=== PATIENT | female | born 1945 | race Caucasian/White ===

== ENCOUNTER 2019-10-16 13:53 | Inpatient (IN) | payer OTHER ==
[~2019-10-16] VITALS: Ht 157.5 cm; Wt 89.4 kg
--- NOTE | ~2019-10-16 | HC ---
[facility] [place] [address] CONSULTATION Name: RAJANITAL K Room #: 412-P [facility] IN M.R.#: [id number] Admission: 10/16/19 Attend Phys: Pamela Santoyo Discharge: Date of : 41 Report #: [id number] THIS REPORT FOR: //name// CC: Arnel Santoyo DATE OF SERVICE: 10/17/2019 REASON FOR CONSULTATION: Possible tonsillar abscess. HISTORY OF PRESENT ILLNESS: The patient is a 74-year-old female, who was in her usual state of good health until this past Tuesday. She noted on Tuesday the onset of odynophagia along with a sensation of tightness, fullness, and discomfort on the right side of the neck. She also noted difficulty on swallowing her own secretions. She had no other symptoms such as otalgia, fevers, sinus or nasal symptoms, chest congestion, or shortness of breath. She did not treat the symptoms, expecting them to resolve and her symptoms progressed over the following 48 hours. She presented to the Emergency Department around 02:00 on 10/16/2019 with increasing complaints of difficulty controlling secretions, right neck swelling and pain, and right odynophagia. She did not have any trismus at that time. She did notice her voice was "high pitched," but she denied any difficulty with airflow or airway complaints. She has also noted at that time, some worsening abdominal pain as well. Examination in the Emergency Room consisted of laboratory testing, which showed a slightly elevated white count. She was not highly febrile. CT scan was obtained, which suggested peritonsillar cellulitis and cellulitic changes in the hypopharynx on the right side. Soft tissue edema seemed to involve the palatine tonsil and the right side of the AE fold and epiglottis. As a result of this, she was admitted to the hospital, given IV Unasyn along with IV steroids. I was asked to evaluate her today for the possibility of a tonsillar abscess and Wiley's angina. At the time of the evaluation in early afternoon of 10/17/2019, the patient stated she feels "much better." She no longer has any odynophagia. She states the neck pain is nearly fully resolved. PAST MEDICAL AND SURGICAL HISTORY: Notable for essential hypertension and previous TIAs. She has also had a partial hysterectomy. MEDICATIONS: Reviewed on the hospital chart and include alendronate, atorvastatin, famotidine, calcium carbonate, cholecalciferol, Unasyn, and prednisone. REVIEW OF SYSTEMS: Present review of systems is negative for any GI, , cardiovascular, or pulmonary symptoms. She denies at this time any otalgia, nasal congestion, postnasal discharge, oral cavity pain, tongue edema or swelling, difficulty swallowing, neck pain, or significant voice change. [address] [address] CONSULTATION Name: TAL GERARD Room #: 412-P [facility] IN M.R.#: [id number] Admission: 10/16/19 Attend Phys: Pamela Santoyo Discharge: Date of : 43 Report #: [id number] PHYSICAL EXAMINATION: She was examined in her hospital bed. She is alert and oriented and pleasant in conversation. Her voice can be considered normal in quality. No facial erythema or edema was appreciated. Examination of the ears is unremarkable. Examination of the nasal mucus membrane shows them to be somewhat dry. Nasal mucosa is otherwise unremarkable. No purulence is noted. Oral cavity reveals healthy, moist-appearing mucosa. Floor of mouth is soft without edema. The tongue is normal in appearance and mobility. Dentition is in excellent repair. Oropharyngeal examination shows no palatal edema. The uvula is in midline without any edema. [place] tonsils bilaterally are not erythematous. The anterior tonsillar pillars are without any erythema or edema. Palpation of the anterior neck in the submandibular areas is soft without any pain or swelling. There is no appreciable lymphadenopathy. Palpation of the anterior neck anterior chain lymph nodes was unimpressive today. Flexible laryngoscopy was performed. See procedure note. I reviewed her CT scan personally and agree with the radiologist's finding of some soft tissue edema in the inferior right palatine tonsil, right AE fold, and inferior right hypopharyngeal wall. There does not appear to be an obvious abscess, but there does appear to be some cellulitis and early phlegmon appearance. ASSESSMENT: Right tonsillar pharyngitis/questionable lingual tonsillitis/lana-cellulitis. RECOMMENDATIONS: I would recommend continued IV antibiotics for a minimum of 48 hours as well as the IV steroids. At that time, if the patient continues to do well, she should be able to be discharged on the Augmentin XR for 10 days along with a Medrol Dosepak. No surgical intervention is needed at this time. Please contact my office if you have further needs for me to address for this patient or if there are further questions. Thank you for this consultation. By: [id number] [id number] Gilbert Layton MD /adeola
--- NOTE | ~2019-10-16 | P ---
[facility] [address] [place] [address] [address] PROCEDURE REPORT Name: RAJANITAL K Room #: 412-P ADM IN M.R.#: [id number] Admission: 10/16/19 Attend Phys: Pamela Santoyo Discharge: Date of : 41 Report #: [id number] THIS REPORT FOR: //name// CC: Arnel Santoyo DATE OF SERVICE: 10/17/2019 PROCEDURE NOTE: After explaining the procedure to the patient and with her verbal agreement, the nares was anesthetized with Pontocaine and Balaji-Synephrine anesthesia. After waiting several minutes, a flexible laryngoscope was advanced through the right naris through the nasopharynx, oropharynx, and hypopharynx. After adequate visualization, the scope was withdrawn. Findings are as noted: Nasal mucus membranes are unremarkable. There is no purulence noted. There was no hyperemia of the nasal membranes. The nasopharynx was without any hyperemia or edema. Immediate oropharynx shows normal appearance to the nasopharyngeal surface of the soft palate and the lateral nasopharyngeal casey. Both tonsils appear unremarkable. There is a moderate amount of edema, but not erythema in the inferior portion of the right palatine tonsil, blunting the right AE fold and obscuring the right base of tongue; however, no erythema or drainage was noted. The epiglottis itself in both the lingual and laryngeal surfaces is without any edema and appears normal. A minimal asymmetry to the soft tissue swelling as noted on the lateral right hypopharyngeal wall, but not down to the level of piriform sinus. The posterior pharyngeal wall and the postcricoid area is unremarkable. Her airway is patent. Both vocal cords moved normally. By: 1230 0000 Gilbert Layton MD /nt
[~2019-10-16 13:53] MED LIST: ASPIR 8181 MG; LIPITOR10 MG PO; LISINOPRIL10 MG
[2019-10-16 14:04] VITALS: BP 141/93
[2019-10-16 14:37] LABS: ANION GAP 15 mmol/L (7-16); BUN 13 mg/dL (7-18); CALCIUM 9.7 mg/dL (8.5-10.1); CHLORIDE 99 mmol/L (98-107); CO2 23 mmol/L (21-32); CREATININE 0.8 mg/dL (0.6-1.0); GLUCOSE 117 mg/dL (74-106); POTASSIUM 3.7 mmol/L (3.5-5.1); SODIUM 137 mmol/L (136-145)
[2019-10-16 14:46] LABS: ALBUMIN 3.7 g/dL (3.4-5.0); SGOT 12 U/L (15-37); SGPT 15 U/L (30-65); TOTAL BILIRUBIN 0.8 mg/dL (<0.1-1.0); TOTAL PROTEIN 8.6 g/dL (6.4-8.2); TROPONIN-I <0.06 ng/mL (<0.06)
[2019-10-16 15:43] LABS: ABSOLUTE NEUTROPHILS 12.5 thou/uL (1.4-8.2); BASOPHILS 0.3 % (0.0-2.0); EOSINOPHILS 0.1 % (0.0-3.0); HEMATOCRIT 40.2 % (37.0-47.0); HEMOGLOBIN 12.9 gm/dL (12.0-15.0); LYMPHOCYTES 6.7 % (24.0-44.0); MCH 26.9 pg (26.0-34.0); MCV 84.1 fL (80.0-100.0); MONOCYTES 7.2 % (1.0-8.0); PLATELET COUNT 250 thou/uL (150-400); POLYS 85.7 % (36.0-66.0); RBC 4.79 mil/uL (4.20-5.00); RDW 15.4 % (10.5-14.5); WBC 14.6 thou/uL (4.0-11.0)
[2019-10-16] MEDS ORDERED: VITAMIN D22000 UNIT PO (16:01)
[2019-10-16] MEDS ORDERED: FOSAMAX 70 MG T70 MG PO (16:01)
[2019-10-16] MEDS ORDERED: TUMS200 MG PO (16:02)
[2019-10-16] MEDS ORDERED: PEPCID20 MG PO (16:02)
[2019-10-16 18:12] VITALS: BP 152/74
[2019-10-16 19:01] LABS: URINE BILIRUBIN NEGATIVE (Negative); URINE BLOOD 1+ (Negative); URINE CLARITY CLEAR; URINE COLOR YELLOW; URINE GLUCOSE-RANDOM* NEGATIVE (Negative); URINE KETONES 3+ (Negative); URINE LEUKOCYTES-REFLEX NEGATIVE (Negative); URINE NITRITE-REFLEX NEGATIVE (Negative); URINE PROTEIN (DIPSTICK) NEGATIVE (Negative); URINE UROBILINOGEN 0.2 E.U./dl (0.2-1.0)
[2019-10-16 19:33] LABS: CASTS None Seen /LPF (None Seen); CRYSTALS None Seen /LPF (None Seen); SQUAMOUS 0-3 Few /LPF (0-3); URINE RBC 3-10 Few /HPF (0-2)
[2019-10-16 19:35] LABS: BACTERIA-REFLEX None Seen /HPF (None Seen); URINE WBC-REFLEX None Seen /HPF (0-5)
[2019-10-16] MEDS ORDERED: ASA81BEC PO (22:54)
[2019-10-16] MEDS ORDERED: ALENDRONATE SOD70 MG PO (22:54)
[2019-10-16] MEDS ORDERED: LIPITOR40 MG PO (22:55)
[2019-10-16] MEDS ORDERED: ACID CONTROLLER20 MG PO (22:56)
[2019-10-16] MEDS ORDERED: CALCIUM CARBON500 MG PO (22:56)
[2019-10-16] MEDS ORDERED: VITAMIN D31250 MCG PO (22:57)
[2019-10-17] VITALS (8 sets, daily range): BP systolic 129–155; BP diastolic 70–89
--- NOTE | 2019-10-17 01:42 | NUR ---
PT ARRIVED ON THE UNIT AROUND 193 WITH DAUGHTER, PT ALERT AND ORIENTEDX4 BUT FORGETFUL, ADMISSION COMPLETED, ASSESSMENTS CHARTED, PT DENIES SOB OR CHEST PAIN, COMPLAINED OF PAIN ON HER RIGHT NECK, PT ON ABT, PATIENT IS RESTING IN BED AT THIS TIME, WILL CONTINUE TO MONITOR
--- NOTE | 2019-10-17 06:42 | NUR ---
PT RESTED WELL THROUGH THE NIGHT, STATED THAT THE PAIN AND THE SWELLING ON THE THROAT IS GOING DOWN, NO COMPLAINS OF ABDOMINAL PAIN OR CHEST PAIN, RECEIVED IV ABT ORDERED, WILL CONTINUE TO MONITOR
--- NOTE | 2019-10-17 11:07 | NUR ---
Case opened to follow for dcplanning. [employer] visited with the pt, her dtr and her son at bedside this morning. The pt is a&ox4 but very forgetful. She lives alone in her own home with 2 steps to enter from the front or garage. She does not use any dme in the home but takes a rolator walker for community activity. She drives occasionally and goes to the [facility] weekly for chair areobics and walking. She takes a couple of medications and is able to manage them with supervision from her dtr. She normally baths indep but when son is there. She has a shower bench. She is weak and has been ill for a couple of days. Will ask for PT/OT evals for possible hh referral at nm. Pt and family agreeable if indicated at nm. She has not needed it before. Sr. Blue Book provided as dtr is hoping to increase supports as needed for the pt to age in place. Cm role introduced. Pt getting ivatb and being seen by ENT for throat infection.
--- NOTE | 2019-10-17 17:46 | NUR ---
ASSUMED CARE OF PT AT SHIFT CHANGE. ASSESSMENTS CHARTED. MEDS GIVEN PER DEC. VSS. NO C/O PAIN. A&OX4. PT NOW ON SOFT DIET WITH NO SWALLOWING PROBLEMS. [facility]ING TO [facility]. WILL CONTINUE TO MONITOR AND FOLLOW POC.
--- NOTE | 2019-10-17 18:44 | NUR ---
PATIENT TRANSFERRED FROM [facility], REPORT FROM GIORGIO/MABEL. PATIENT ALERT AND ORIENTED X 4. 2 IV'S LEFT AC AND LEFT HAND. POSSIBLE DISCHARGE TO HOME.
--- NOTE | 2019-10-18 06:31 | NUR ---
ASSUMED PT CARE AT APPROX 1922. PT IS A&OX4. PT HAS AN UNSTEADY GAIT. PT TOOK SCHEDULED MEDICATION FINE BUT HAD COMPLAINTS ABOUT WHERE HER IV WAS. PT HAS AN IV IN HER LEFT AC SALINE LOCKED, ALSO IN HER LEFT HAND WITH NS RUNNING AT 100MLS/HR. PT HAS NO COMPLAINTS OF PAIN. PT SLEPT THOUGH THE NIGHT. I OFFERED THE PT A SHOWER. SHE REFUSED AND SAID THAT SHE'D RATHER WAIT UNTIL SHE GETS HOME. PT IS LOOKING FORWARD TO GOING HOME. WILL CONTINUE TO MONITOR.
[2019-10-18 07:30] VITALS: BP 138/94
[2019-10-18] MEDS ORDERED: AUGMENTIN 875-1 EACH PO ×2 (10:19→10:30)
[2019-10-18] MEDS ORDERED: MEDROLDOSEPACK PO (10:19)
[2019-10-18 10:57] VITALS: BP 138/94
[2019-10-18 11:26] VITALS: BP 138/94
--- NOTE | 2019-10-18 11:29 | NUR ---
ASSUMED CARE AT 0700. PT IS AOX4, VSS, NO C/O PAIN AT THIS TIME. PT CALLS APPROPRIATELY. PT USES RESTROOM WITH STANDBY ASSIST, CURRENTLY RECEIVING ANTIBIOTIC PER IV ORDERED. PT WILL DISCHARGE HOME WITH DAUGHTER & SON AFTER ANTIBIOTIC IS COMPLETE. IV WILL BE D/C'D WHEN DONE. PT PERSONAL BELONGINGS ARE PACKED AND READY TO TAKE HOME. PT RECEIVED DISCHARGE PAPERS AND PRESCRIPTION.
[2019-10-18 11:46] VITALS: BP 138/94
--- NOTE | 2019-10-18 13:42 | NUR ---
DISCHARGE NOTE: SW reviewed chart and spoke with nursing and attending physician. Pt was [facility] to [facility] from and is medically stable for discharge home today. No discharge needs identified at this time. Pt's family to provide transportation home. Case closed.
--- NOTE | 2019-10-18 17:10 | EKG ---
[place] [address] [facility] [place] [address] ELECTROCARDIOGRAM REPORT Name: TAL GERARD Room #: 412-P 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 : 1945 Requested By: Gato Allan Order Number: [id number] MD: Ahsan Lewis Measurements Intervals [place] Rate: 116 P: 42 VA: 167 QRS: 7 QRSD: 75 T: -15 QT: 310 QTc: 431 Interpretive Statements Sinus tachycardia Probable left atrial enlargement Low voltage, precordial leads Borderline T abnormalities, inferior leads Baseline wander in lead(s) V1,V2 Electronically Signed On 10-18-2019 17:10:08 PACKAGE CENTER SUPERVISOR by Ahsan Lewis [email or web address] <ELECTRONICALLY SIGNED> By: Ahsan Lewis MD 10/18/19 1710 1423 1423 Ahsan Lewis MD /EPI
== END 2019-10-18 12:50 | disposition home or self-care (01) | DRG 871 ==
LOC: ER 13:53 → EROBS 17:17 → 4N 17:17 → 2N 17:17 → ENTRNSPT 10-17 17:58 → 4N 10-17 18:43 → EDTRNSPT 10-18 12:05 → EDTRNSPTTYP 10-18 12:05 → EDTRNSPTSTS 10-18 12:18 → 4N 10-18 12:50
PROVIDERS: Emergency Medicine; Physician Assistant; ADMIT Hospitalist
PROC: 0CJS8ZZ Inspection of Larynx, Via Natural or Artificial Opening Endoscopic (ICD-10-PCS; principal; 2019-10-17)
DX: A41.9 Sepsis, unspecified organism (principal); E43 Unspecified severe protein-calorie malnutrition; K12.2 Cellulitis and abscess of mouth; J36 Peritonsillar abscess; J05.10 Acute epiglottitis without obstruction; I10 Essential (primary) hypertension; E78.5 Hyperlipidemia, unspecified; M81.0 Age-related osteoporosis without current pathological fracture; M19.90 Unspecified osteoarthritis, unspecified site; G47.00 Insomnia, unspecified; R63.4 Abnormal weight loss; G31.84 Mild cognitive impairment of uncertain or unknown etiology; R13.10 Dysphagia, unspecified; Z60.2 Problems related to living alone; Z86.73 Personal history of transient ischemic attack (TIA), and cerebral infarction without residual deficits; Z79.899 Other long term (current) drug therapy; Z79.82 Long term (current) use of aspirin; Z28.21 Immunization not carried out because of patient refusal; Z68.36 Body mass index [BMI] 36.0-36.9, adult; Z90.711 Acquired absence of uterus with remaining cervical stump
CPT/HCPCS: 10081; 10790

== ENCOUNTER 2021-06-12 13:17 | Inpatient (IN) | payer OTHER ==
[~2021-06-12] VITALS: Ht 170.2 cm; Wt 86.9 kg
[~2021-06-12 13:17] MED LIST changes: +ACID CONTROLLER20 MG PO; +ALENDRONATE SOD70 MG PO; +ASA81BEC PO; +AUGMENTIN 875-1 EACH PO; +CALCIUM CARBON500 MG PO; +FOSAMAX 70 MG T70 MG PO; +LIPITOR40 MG PO; +MEDROLDOSEPACK PO; +PEPCID20 MG PO; +TUMS200 MG PO; +VITAMIN D22000 UNIT PO; +VITAMIN D31250 MCG PO
[2021-06-12 13:18] VITALS: BP 126/107
[2021-06-12 13:39] LABS: ABSOLUTE NEUTROPHILS 8.9 thou/uL (1.4-8.2); BASOPHILS 0.5 % (0.0-2.0); EOSINOPHILS 0.1 % (0.0-3.0); HEMATOCRIT 39.3 % (37.0-47.0); HEMOGLOBIN 12.7 gm/dL (12.0-15.0); MCH 26.3 pg (26.0-34.0); MCHC 32.4 g/dL (28.0-37.0); MCV 81.3 fL (80.0-100.0); MONOCYTES 5.4 % (1.0-8.0); PLATELET COUNT 229 thou/uL (150-400); RBC 4.84 mil/uL (4.20-5.00); RDW 15.7 % (10.5-14.5); WBC 10.3 thou/uL (4.0-11.0)
[2021-06-12 13:43] LABS: CREATININE 1.1 mg/dL (0.6-1.0); POTASSIUM 4.2 mmol/L (3.5-5.1)
[2021-06-12 14:01] LABS: URINE BILIRUBIN NEGATIVE (Negative); URINE BLOOD TRACE (Negative); URINE CLARITY CLEAR; URINE COLOR YELLOW; URINE GLUCOSE-RANDOM* TRACE (Negative); URINE KETONES TRACE (Negative); URINE LEUKOCYTES-REFLEX NEGATIVE (Negative); URINE NITRITE-REFLEX NEGATIVE (Negative); URINE PROTEIN (DIPSTICK) NEGATIVE (Negative); URINE SPECIFIC GRAVITY 1.015 (1.005-1.035); URINE UROBILINOGEN 0.2 E.U./dl (0.2-1.0)
[2021-06-12] MEDS ORDERED: ADULT LOW DOSE81 MG PO (14:22)
[2021-06-12] MEDS ORDERED: VITAMIN D PO (14:24)
--- NOTE | 2021-06-12 15:17 | NUR ---
ASSUMED CARE AT THIS TIME
[2021-06-12 21:01] VITALS: BP 147/74
[2021-06-12 21:46] VITALS: BP 158/96
[2021-06-12 22:15] VITALS: BP 157/91
--- NOTE | 2021-06-13 04:20 | NUR ---
PT ADMITTED TO ROOM 216 FOR CVA, PT IS DROWSY, ALERT TO SELF AND PLACE, ATTEMPTED TO PERFORM THE NIH SCALE BUT PT COULD NOT FOLLOW COMMANDS, ST ON TELE, DENIES PAIN, ADMISSION HX LIMITED D/T PTS CONDITION, ADMISSION ASSESSMENT CHARTED, PT REMAINED NPO, PLAN FOR SPEECH EVAL AND MRI OF THE HEAD TODAY, NO NEEDS AT THIS TIME, WILL CONTINUE TO MONITOR
[2021-06-13 04:22] VITALS: BP 150/83
[2021-06-13 07:55] VITALS: BP 154/75
--- NOTE | 2021-06-13 11:35 | EKG ---
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
--- NOTE | 2021-06-13 11:35 | EKG ---
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
[2021-06-13 19:55] VITALS: BP 152/83
[2021-06-14 04:41] VITALS: BP 158/85
--- NOTE | 2021-06-14 05:10 | NUR ---
ASSUMED PT CARE AT 1900, PT IS AWAKE DURING ASSESSMENT, DENIES PAIN OR DISTRESS, A&O TO SELF AND PLACE, ASSESSMENTS CHARTED, MEDS GIVEN PER MAR, NO NEEDS AT THIS TIME, WILL CONTINUE TO MONITOR AND FOLLOW POC
[2021-06-14 08:35] VITALS: BP 151/75
--- NOTE | 2021-06-14 09:38 | HC ---
[facility] [address] [place] [address] [address] CONSULTATION Name: TAL GERARD Room #: 216-P ADM IN M.R.#: [id number] Admission: 06/12/21 Attend Phys: Sherri Salcido MD Discharge: Date of : 41 Report #: [id number] THIS REPORT FOR: cc: Arnel Breaux David J. DO [place], Roxane S. DO ~ NEUROLOGY CONSULT HISTORY OF PRESENT ILLNESS: The patient is a 76-year-old female who called her son to come over to the house around 8:00 a.m. He found her on the floor, he saw that she had hit her head. He helped her up and she went to the bathroom, he told her that he was going to go to work and he will check back on her. He came back to the house and by 11:15 a.m., she had fallen down again. She told him that she could not get back up and she was just weight. He called his sister who was a substance addiction coordinator for [employer] [employer] and she thought the patient had a stroke and EMS was called. He did not notice that she was weak on one side or the other. He also told me that his mother has been struggling for a month. She has some good days and some bad days and some days she does not want to do anything. I had the opportunity to speak to her daughter who was in the room, who described the events the same way. She also mentioned that her mother has been having more difficulty and she has been helping her mother pay her bills. She does not think her mother will be able to live on her own after this. PAST MEDICAL HISTORY: Hypertension, orthostatic hypotension, hyperlipidemia, stroke, gastroesophageal reflux, osteoporosis. PAST SURGICAL HISTORY: Partial hysterectomy. MEDICATIONS: At home, Fosamax weekly on Mondays, aspirin 81 mg daily, atorvastatin 40 mg daily, famotidine 20 mg b.i.d., calcium carbonate b.i.d., vitamin D 1250 units daily, aspirin 81 mg daily. ALLERGIES: None. VITAL SIGNS: Temperature 37.3, pulse rate 100, respiratory rate 20, blood pressure 154/74, bedside pulse oximetry 100% on room air. LABORATORY DATA: Hematology: White blood cell count 10.3, hemoglobin 12.7, hematocrit 39.3, MCV 81.3, platelet count 229,000. Urinalysis: pH 8.5, trace blood and ketones, trace glucose. Chemistry: Sodium 139, potassium 4.2, chloride 104, carbon dioxide 29, BUN 9, creatinine 1.1, GFR 48, glucose 145, calcium 9. Creatine kinase 57. Troponin 6. BNP 110. Serology: COVID negative. [address] [address] CONSULTATION Name: TAL GERARD Room #: 216-P [facility] IN M.R.#: [id number] Admission: 06/12/21 Attend Phys: Sherri Salcido MD Discharge: Date of : 41 Report #: [id number] IMAGING: Carotid duplex is unremarkable. There is no evidence of significant plaque. Chest x-ray shows no acute cardiopulmonary abnormality. CT scan of the head shows chronic microvascular ischemia. No evidence of acute intracranial abnormality. NEUROLOGIC EXAM: Cranial nerves reveal the patient to have a left gaze preference. However, on command, she does have normal horizontal gaze. She also has a mild right facial droop. On motor examination, she has a right hemiparesis. The leg may be more affected than the arm. Plantar responses are flexor on the left, mute on the right. Coordination and gait were not tested. IMPRESSION AND PLAN: This patient has had a stroke. When she came to the emergency room, her blood pressure was actually 126/107 and it has just recently begun to increase. Apparently, the patient has a history of hypertension, but when she was on antihypertensive medication, she became orthostatic and so it was decided to allow her to have a higher blood pressure, so I would not treat the hypertension that we are currently seeing at this time. The patient is on aspirin monotherapy. I have added clopidogrel 75 mg daily for 21 days to be taken in addition to aspirin 81 mg daily. An echocardiogram has been ordered and the patient will need PT, OT and speech therapy, which have all been ordered as well. The patient has also been having some cognitive deficits and I have ordered B12 and thyroid to look for treatable causes of cognitive difficulties. I am also repeating a CT scan of the head since the patient has obviously had a stroke and it is difficult to get an MRI of the head at this facility on the weekend. I thank you for your kind referral of the patient and we will continue to follow her with you. <ELECTRONICALLY SIGNED> By: Teresa Glez DO 06/14/2138 1159 23 Teresa Glez DO /nt
[2021-06-14 12:05] VITALS: BP 143/68
[2021-06-14 16:20] VITALS: BP 150/85
[2021-06-14 16:52] LABS: CHOLESTEROL 133 mg/dL (<200); HDL CHOLESTEROL 56 mg/dL (>40); LDL CHOLESTEROL 57 mg/dL (<100); TC:HDL 2.4 Ratio (Not establshd); TRIGLYCERIDE 101 mg/dL (<150); VLDL 20 mg/dL (<40)
[2021-06-14 19:52] VITALS: BP 155/76
--- NOTE | 2021-06-14 20:02 | NUR ---
PT IS AXOX3; ORIENTED TO SELF, PLACE, AND SITUATION, UNABLE TO GIVE DATE. VSS, AFEBRILE, SR WITH PVC ON MONITOR. PT IS ON PUREED DIET WITH THIN LIQUIDS, ABLE TO TAKE MEDICINES CRUSHED IN PUDDING. PT DTR, THEN SON, AT THE BEDSIDE. DR CONTE CONSULTED. POC IS TO CONTINUE TO ASSESS PT VIA NIH SCALE. MRI, MRA, AND EEG SCHEDULED FOR 06/15. HIGH FALL PRECAUTIONS IN PLACE. FREQUENT ROUNDING.
[2021-06-15 04:38] VITALS: BP 135/90
--- NOTE | 2021-06-15 06:35 | NUR ---
A&OX3, SR ON TELE, DENIES PAIN, ASSESSMENTS CHARTED, FLUIDS INFUSING PER MAR, ADEQUATE URINE OUTPUT, NIH SCORE OF A 8, PLAN FOR MRI AND EEG TODAY, PROGRESSING TOWARDS POC
[2021-06-15 08:00] VITALS: BP 136/73
--- NOTE | 2021-06-15 11:37 | 2DMMODE ---
[facility] [place] [address] 2 D/M-MODE ECHOCARDIOGRAM Name: TAL GERARD Karlene Room #: 216-P ADM IN ..#: [id number] Admission: 06/12/21 Attend Phys: Sherri Salcido MD Discharge: Date of : 41 Report #: [id number] THIS REPORT FOR: cc: Arnel Breaux David J. DO Lammoglia, Francisco J. MD ~ APPROVED REPORT Study performed: 06/15/2021 09:37:47 EXAM: Comprehensive 2D, Doppler, and color-flow Echocardiogram Patient Location: In-Patient Room #: 216 Status: routine BSA: 1.98 HR: 81 bpm BP: 135/90 mmHg Rhythm: NSR Other Information Study Quality: Fair Indications Hypertension/HDD 2D Dimensions IVSd: 10.32 (7-11mm) LVOT Diam: 21.59 (18-24mm) LVDd: 44.24 mm PWd: 10.73 (7-11mm) Ascending Ao: 35.46 (22-36mm) LVDs: 26.69 (25-40mm) Left Atrium: 35.14 (27-40mm) Aortic Root: 31.95 mm Volumes Left Atrial Volume (Systole) Single Plane 4CH: 33.19 mL Single Plane 2CH: 22.77 mL Biplane LA Volume: 35.00 mL LA ESV Index: 17.00 mL/m2 Aortic Valve AoV Peak Stanley.: 1.59 m/s AO Peak Gr.: 10.06 mmHg LVOT Max P.72 mmHg LVOT Max V: 0.96 m/s ESTEBAN Vmax: 2.22 cm2 [facility] [address] [place] [address] 2 D/M-MODE ECHOCARDIOGRAM Name: TAL GERARD Room #: 216-P [facility] IN [facility]#: [id number] Admission: 06/12/21 Attend Phys: Amarilys Schwartz Discharge: Date of : 41 Report #: [id number] Mitral Valve E/A Ratio: 0.8 MV Decel. Time: 260.95 ms MV E Max Stanley.: 0.67 m/s MV A Stanley.: 0.79 m/s MV PHT: 75.68 ms IVRT: 64.59 ms Pulmonary Valve PV Peak Stanley.: 1.03 m/s PV Peak Gr.: 4.33 mmHg Pulmonary Vein P Vein S: 0.46 m/s P Vein A: 0.32 m/s P Vein D: 0.44 m/s P Vein S/D Ratio: 1.05 Tricuspid Valve TR Peak Stanley.: 2.54 m/s RAP Estimate: 7.00 mmHg TR Peak Gr.: 25.88 mmHg RVSP: 33.00 mmHg Left Ventricle The left ventricle is normal size. There is normal LV segmental wall motion. Borderline concentric left ventricular hypertrophy. Left ventricular systolic function is normal. The left ventricular ejection fraction is within the normal range. LVEF is 65-70%. The left ventricular diastolic function is normal. Right Ventricle The right ventricle is normal size. The right ventricular systolic function is normal. Atria The left atrium size is normal. The right atrium size is normal. Aortic Valve Aortic valve is trileaflet. Mild aortic regurgitation. There is no aortic valvular stenosis. Mitral Valve The mitral valve is normal in structure. There is no mitral valve regurgitation noted. No evidence of mitral valve stenosis. Tricuspid Valve The tricuspid valve is normal in structure. Mild tricuspid regurgitation. PAP 33 mmHg [facility] [address] [place] [address] 2 D/M-MODE ECHOCARDIOGRAM Name: TAL GERARD Room #: 216-P [facility] IN [facility].#: [id number] Admission: 06/12/21 Attend Phys: Amarilys Schwartz Discharge: Date of : 41 Report #: [id number] Pulmonic Valve The pulmonary valve is normal in structure. There is no pulmonic valvular regurgitation. Great Vessels The aortic root is normal in size. IVC is not well visualized. Pericardium No subcostal window <Conclusion> The left ventricle is normal size. Borderline concentric left ventricular hypertrophy. LVEF is 65-70%. The left atrium size is normal. The right ventricle is normal size. Aortic valve is trileaflet. Mild aortic regurgitation. The mitral valve is normal in structure. The tricuspid valve is normal in structure. Mild tricuspid regurgitation. PAP 33 mmHg The pulmonary valve is normal in structure. The aortic root is normal in size. No subcostal window <ELECTRONICALLY SIGNED> By: Rivera Ness MD 06/15/21 1136 1136 1136 Rivera Ness MD /INF
[2021-06-15 16:00] VITALS: BP 142/75
[2021-06-15 19:22] VITALS: BP 158/72
--- NOTE | 2021-06-16 02:47 | NUR ---
PT IS ALERT X2. CONFUSED ON TIME. PRESIDENT. THEN DURING THE NIGHT REPORTS NOT SLEEPING WELL AND SEEING THINGS. LUNGS ARE CLEAR . ON ROOM AIR. PULLED IV OUT. PT HAD ANOTHER ACCESSS USED THAT ONE. DENIES ANY PAIN ISSUES. CALL LIGHT WITHIN REACH IF NEEDS ASSISTANCE PER NURSING. ONGOING CARE
[2021-06-16 04:05] VITALS: BP 176/90
[2021-06-16 08:00] VITALS: BP 130/61
[2021-06-16 10:29] LABS: HEMATOCRIT 41.8 % (37.0-47.0); HEMOGLOBIN 13.3 gm/dL (12.0-15.0); MCHC 31.8 g/dL (28.0-37.0); MCV 81.6 fL (80.0-100.0); RBC 5.12 mil/uL (4.20-5.00)
--- NOTE | 2021-06-16 10:33 | NUR ---
PT DAUGHTER WHO REPORT SHE IS A RETIRED RN TOOK PT'S TELE OFF SHE STATES HER MOTHER IS ALLERGIC TO THE TELE PADS. INFORM DR. TY AND HE SAID THAT IT IS OK. WILL CONTINUE TO ASSESS.
[2021-06-16 10:45] LABS: CALCIUM 8.2 mg/dL (8.5-10.1); CREATININE 0.9 mg/dL (0.6-1.0); MAGNESIUM 2.1 mg/dL (1.8-2.4); POTASSIUM 3.1 mmol/L (3.5-5.1)
--- NOTE | 2021-06-16 11:53 | NUR ---
Met with son outside of room. Patient admits from home. She lives in independent home. She has a rolator walker she uses in community. Son reports she is independent with adls but doesnt drive. Dtr is Rn who lives nearby. Discussed 5N in process of eval. Dtr interested in list of skilled rehab facilities for future. Will give dtr list and review. Casemgt following.
[2021-06-16 12:00] VITALS: BP 105/58
[2021-06-16 16:00] VITALS: BP 123/73
--- NOTE | 2021-06-16 17:14 | NUR ---
Met with dtr and son. Reiewed acute rehab at [facility]. [facility] accepting of patient with tenative dc today. Gave dtr blue book, assisted living and skilled list for future planning.
--- NOTE | 2021-06-16 17:45 | NUR ---
SPOKE W/ DR. TY AND RN. Pt READY FOR D/C TODAY. WILL PLAN FOR ADMISSION TO [facility] THIS EVENING. ROHIT ORELLANA NP SPOKE W/ Pt AND FAMILY EARLIER TODAY ALSO REGARDING REHAB.
--- NOTE | 2021-06-16 18:08 | NUR ---
REPORT CALL TO [facility]. WILL DISCHARGE TO [facility]. ASKED TO LEAVE IV IN.
--- NOTE | 2021-06-18 10:53 | EEG ---
[facility] [place] [address] ELECTROENCEPHALOGRAM Name: TAL GERARD Room #: 216-P [facility] IN M.R.#: [id number] Admission: 06/12/21 Attend Phys: Sherri Salcido MD Discharge: 06/16/21 Date of : 43 Report #: [id number] THIS REPORT FOR: //name// DATE OF SERVICE: 06/15/2021 This patient is being evaluated for altered mental status. The EEG was done by placing the electrode by standard 10-20 system of electrode placement. Both referential and sequential montages were used for recording. Background activity in this patient's EEG is difficult to determine because a lot of muscle artifact is present. It appeared to be about 8 Hz and 30 microvolt. The patient became drowsy that is associated with bilateral slowing. Throughout the record, no active epileptiform activity was noticed. IMPRESSION: This patient's EEG has a lot of artifact and is very difficult to interpret. It does appear to be showing some intermixed slowing, which is a nonspecific finding which can occur with encephalopathy, dementia, effect of psychotropic medication, etc. No active epileptiform activity was noticed. Thank you very much for this referral. <ELECTRONICALLY SIGNED> By: Edward Morrow MD 06/18/21 1053 [id number] 1519 Edward Morrow MD /nt
--- NOTE | 2021-06-23 10:59 | HC ---
[facility] [place] [address] CONSULTATION Name: TAL GERARD Room #: 216-P [facility] IN ..#: [id number] Admission: 06/12/21 Attend Phys: Sherri Salcido MD Discharge: 06/16/21 Date of : 43 Report #: [id number] THIS REPORT FOR: cc: Arnel Breaux David J. DO Smithson, David G. MD ~ DATE OF SERVICE: 06/15/2021 HISTORY OF PRESENT ILLNESS: The patient is a 76-year-old white female who was admitted with vision changes, mental status changes; fall, one on the day before admission and then another one the day of admission. She is noted to have right hand weakness and was having right gaze preference with some right inattention. She is noted to have acute renal insufficiency as well and acute metabolic encephalopathy. She has been seen by Neurology and an MRI of the brain is pending for today as well as an EEG. We are seeing her in rehabilitation medicine consultation. Upon discussion with the patient's son, he notes that she is moving the right arm better than she was upon admission. PAST MEDICAL HISTORY: Includes hypertension and elevated cholesterol. She has had a prior CVA about five years ago and did not have any significant residual. MEDICATIONS: Please see the full medication listing. ALLERGIES: No known drug allergies. SOCIAL HISTORY: The patient lives in a house 2 steps plus another one step to get in. She did not utilize gait aids in the house, but used a front wheeled walker when out of the home. There is a son and a daughter who lives nearby. The daughter apparently works with [employer] [facility] [employer] as a coordinator, but has been a past monitoring coordinator over at [employer]. The daughter has been noted to be helping with bills prior to this admission and there is noted concerns as to whether the patient will be able to return back to the home setting or not depending upon how she does. REVIEW OF SYSTEMS: Did not offer any current complaints of chest pain, shortness of breath or abdominal discomfort. PHYSICAL EXAMINATION: GENERAL: The patient is a 76-year-old white female in no obvious distress. VITAL SIGNS: Temperature 37.1, pulse 80, respirations 16, blood pressure 135/90. NEUROLOGIC: The patient is alert. She is pleasant. HEENT: Appeared to be benign. She was able to track fully, right and left. No nystagmus. Visual field testing was somewhat difficult. It seems like she might have some left crissy-inattention deficits, although I could not get this with repetition. Facies appeared to be symmetric. [address] [address] CONSULTATION Name: GERARDTAL K Room #: 216-P [facility] IN ..#: [id number] Admission: 06/12/21 Attend Phys: Sherri Salcido MD Discharge: 06/16/21 Date of : 43 Report #: [id number] EXTREMITIES: Functional range of motion of both upper extremities and lower extremities. Strength of the right upper extremity is somewhat decreased, a grade 4-/5. She did reasonably well with [id number]. She has some difficulty understanding thumb to fingertip sequential testing, but with repetition was able to achieve this. No obvious focal weakness of the left upper extremity or lower extremities. No focal calf swelling. Tone appeared to be intact. There was no clonus at the ankles. Strength is probably a grade 4-/5 bilaterally. On 06/13, she was up, at that point was mod assist sit to stand, was max assist to ambulate 5 feet handheld assistance and had some right crissy-inattention at that point in time. ASSESSMENT: A 76-year-old white female with the following problem list: 1. Probable cerebrovascular accident. She has been noted to have right-sided weakness and some right attention. MRI of the brain is pending for today as well as an EEG. Neurology is involved. 2. Acute metabolic encephalopathy. 3. Acute renal failure. 4. Hypertension, not well controlled. 5. Hyperlipidemia. 6. History of cerebrovascular accident. PLAN: MRI and EEG today. Therapy is to reevaluate. She certainly may be a good candidate for an acute in-hospital inpatient rehabilitation stay as she further medically stabilizes. We will be glad to follow along with you regarding her rehab therapy needs. Discussion with the patient's son. <ELECTRONICALLY SIGNED> By: Arnel Choi MD 06/23/21 1059 0801 0838 Arnel Choi MD /nt
== END 2021-06-16 18:44 | DRG 64 ==
LOC: ER 13:17 → 2N 20:50 → EROBS 20:50 → 2N 20:50
PROVIDERS: Internal Medicine; Psychiatry & Neurology Neurology; Student in an Organized Health Care Education/Training Program; ADMIT Hospitalist; ATTEND Hospitalist
DX: I62.00 Nontraumatic subdural hemorrhage, unspecified (principal); G93.41 Metabolic encephalopathy; N17.9 Acute kidney failure, unspecified; E87.6 Hypokalemia; E78.5 Hyperlipidemia, unspecified; E53.8 Deficiency of other specified B group vitamins; I10 Essential (primary) hypertension; Z66 Do not resuscitate; G31.84 Mild cognitive impairment of uncertain or unknown etiology; M81.0 Age-related osteoporosis without current pathological fracture; Z20.822 Contact with and (suspected) exposure to COVID-19; K21.9 Gastro-esophageal reflux disease without esophagitis; Z79.82 Long term (current) use of aspirin; Z87.891 Personal history of nicotine dependence; Z79.899 Other long term (current) drug therapy; Z90.711 Acquired absence of uterus with remaining cervical stump; Z86.73 Personal history of transient ischemic attack (TIA), and cerebral infarction without residual deficits
CPT/HCPCS: 10081

== ENCOUNTER 2021-06-16 17:38 | Inpatient (IN) | payer OTHER ==
[~2021-06-16] VITALS: Ht 157.5 cm; Wt 88.5 kg
--- NOTE | ~2021-06-16 | P ---
[facility] [place] [address] PROCEDURE REPORT Name: TAL GERARD Room #: 514-P ADM IN M.R.#: [id number] Admission: 06/16/21 Attend Phys: Arnel Choi MD Discharge: Date of : 41 Report #: [id number] THIS REPORT FOR: cc: Arnel Breaux David J. DO Smithson, David G. MD ~ DATE OF SERVICE: 06/19/2021 PROGRESS NOTE/OVERALL PLAN OF CARE HISTORY OF PRESENT ILLNESS: The patient seen back today in followup. She is alert, pleasant, feeling better, in good spirits. VITAL SIGNS: Temperature 98.2, pulse 108, respirations 18, blood pressure 133/63. NEUROLOGIC: No focal calf swelling. She has a good appetite for lunch. Appreciate neurology followup. They have signed off. Functionally, she is transferring contact guard assistance and gait is 175 feet front-wheeled walker with assistance. She is min assist to go up and down eight steps. Lower body dressing has been min assist with upper body supervision. In speech, she does have moderate to severe cognitive deficits with severe memory deficits. She is on a mechanical soft, thin liquid diet. ASSESSMENT: A 76-year-old female with the following problem list: 1. Fall with small subdural hematoma. 2. Clinical cerebrovascular accident with right visual field deficit with crissy-inattention and right-sided weakness. 3. Closed head injury status post fall x2 prior to admission. 4. Metabolic encephalopathy. 5. Renal insufficiency. 6. Hypertension. 7. Hyperlipidemia. 8. Prior history of a cerebrovascular accident. PLAN: The overall plan of care is based on the pre-admit screen and information garnered from therapy assessments. 1. Estimated length of stay is probably 10-14 days. 2. Medical prognosis is reasonably good. 3. Anticipated interventions includes the interdisciplinary acute inpatient rehabilitation program. 4. Anticipated functional outcomes would be for the patient to become modified independent with transfers, mobility and ADLs at least at a walker level. Also to try to improve as far as her cognitive issues, so that she can return back to the home setting. 5. Discharge destination would be back to the home setting with son and [facility] [address] [place] [address] PROCEDURE REPORT Name: TAL GERARD Room #: 514-P ADM IN [facility].#: [id number] Admission: 06/16/21 Attend Phys: Arnel Choi MD Discharge: Date of : 41 Report #: [id number] daughter are involved and likely some increased assistance. We will need to see how this goes as far as assist in the home. 6. Expected therapy by discipline includes PT, OT and speech 1 hour per day each five days a week throughout the duration of the acute inpatient rehabilitation stay. ADDENDUM: The patient's prognosis for significant practical improvement within a reasonable period of time appears good. Given the patient's complex medical condition and risk of further medical complication, rehabilitation services could not be safely provided at a lower level of care, such as a jail facility. By: 1130 1719 Arnel Choi MD /nt
[~2021-06-16 17:38] MED LIST changes: +ADULT LOW DOSE81 MG PO; +VITAMIN D PO
[2021-06-16 18:46] VITALS: BP 127/78
--- NOTE | 2021-06-16 19:14 | NUR ---
1845 PATIENT ADMITED TO ROOM 514. PATIENT IS ALERT AND ORINETED X4, BUT FORGETFUL. PATIENT MANUEL'S, GRAB JACK MAN ARE EQUAL. LUNGS ARE CLEAR AND DEMINISHED. ABD IS SOFT WITH BSX4. UP WITH ASSIST OF 1 STAFF AND GAIT BELT AND WALKER TO BATHROOM OR BSC. PATIENT HAS S.L. IN HER LEFT AC. CALL LIGHT IN REACH. NO EDEMA NOTED IN HER LOWER EXTREMITIES. FAMILY AT BEDSIDE. FALL AND SAFETY PROTOCOLS IN PLACE. DENIES PAIN AT THIS TIME. PT/OT/ST EVALS TO BE DONE IN A.M. PATIENT HAS SOME BRUISING ON EXTREMITIES. WILL CONTINUE TO MONITER.
--- NOTE | 2021-06-17 03:36 | NUR ---
ASSUMED CARE AT 1930 OF 06/16. PATIENT IS A&O TO SELF ONLY. DENIES SOB. REPORTED GENERALIZED PAIN, WHICH WAS MANAGED WITH PRN TYLENOL. PATIENT APPEARS TO BE HAVING INTERMITTENT HALLUCINATIONS, BUT CAN BE EASILY REDIRECTED. AT HS PATIENT REQUESTED TO BE REMOVED FROM THE BED, BECAUSE SHE FELT THAT IT IS RAINING INSIDE THE ROOM AND IT HAS SOAKED THE BED. PATIENT IS MINIMAL ASSIST OF 1 USING GB TO TRANSFER AND AMBULATE. PATIENT WAS ABLE TO REST ON RECLINER FOR A WHILE BEFORE PATIENT REQUESTED LEAVE. PATIENT IS REDIRECTED AND IS COOPERATIVE. AT AROUND 0130 PATIENT IS NOTED TRYING TO GET OUT OF RECLINER, SHE REPORTS HEARING A DOG THAT NEEDS TO BE LET OUT. PATIENT WAS ASSISTED TO W/C AND WAS ROLLED AROUND THE UNIT AND SAT AT NURSE STATION WITH NURSE PLAYING HER Sutus GAME. SHE IS REORIENTED TO SITUATION, PLACE AND TIME, AND IS REDIRECTED TO GO TO SLEEP. ASSISTED TO BATHROOM AND RECLINER, CURRENTLY SLEEPING IN RECLINER. FALL PRECAUTIONS IN PLACE, WILL CONTINUE TO MONITOR.
[2021-06-17 05:27] LABS: HEMATOCRIT 37.2 % (37.0-47.0); HEMOGLOBIN 12.3 gm/dL (12.0-15.0); MCH 27.1 pg (26.0-34.0); MCHC 33.1 g/dL (28.0-37.0); MCV 81.8 fL (80.0-100.0); RBC 4.55 mil/uL (4.20-5.00); WBC 8.8 thou/uL (4.0-11.0)
[2021-06-17 06:06] LABS: CALCIUM 8.2 mg/dL (8.5-10.1); CREATININE 0.9 mg/dL (0.6-1.0); MAGNESIUM 1.9 mg/dL (1.8-2.4); POTASSIUM 3.8 mmol/L (3.5-5.1)
[2021-06-17 07:15] VITALS: BP 151/88
--- NOTE | 2021-06-17 10:16 | NUR ---
ASSUMED CARE AT 0700. PATIENT IS ALERT AND ORIENTED X2-3. PATIENT IS HAVING HALLUCINATIONS: SEEING CHILDREN IN ROOM THAT ARE NOT THERE. DR. BOYLE CONSULTED. LUNGS ARE CLEAR AND DEMINISHED. ABD IS SOFT WITH BSX4. UP TO THE BATHROOM WITH ASSIST OF 1 STAFF AND GAIT BELT AND WALKER. PATIENT IS VOIDING ALFONZO COLORED URINE. S.L. IN PATIENT'S LEFT AC DC'D. FALL AND SAFETY PROTOCOLS IN PLACE. DENIES PAIN AT THIS TIME. CONTINUES WITH EVALS. WILL CONTINUE TD MONITER.
[2021-06-17 19:20] VITALS: BP 127/63
--- NOTE | 2021-06-18 03:26 | NUR ---
assumed care approx 1900 evening 06/17. pt sitting in recliner at change of shift. pt pleasant and cooperative stating she is seeing people and animals and no one will believe her. pt also with bouts of confusion and forgetfulness. pt went to sleep approx 2200 and appears to be sleeping soundly. bed alarm on and call light in reach. will continue to monitor.
[2021-06-18 07:45] VITALS: BP 127/63
--- NOTE | 2021-06-18 08:01 | NUR ---
Chart review. DX cva. Prior to hospital, she was living alone. 3 steps to enter her home. Manage own medications. Has fww she uses outside the home. No longer drives. Son and daughter live in area. Will cont following as needed for dc needs.
[2021-06-18 19:33] VITALS: BP 133/63
--- NOTE | 2021-06-18 23:32 | NUR ---
PT ALERT AND ORIENTED X 3. AMB TO BR WITH WALKER AND ASSIST X 1. IMPULSIVE AT TIMES. SLEEPING IN RECLINER AT THIS TIME. PT TOOK HS MEDS IN APPLESAUCE WITHOUT DIFFICULTY. PT DENIES PAIN OR DISCOMFORT. CHAIR ALARM ON FOR SAFETY. PT APPEARS TO BE SLEEPING ON HOURLY ROUNDS.
--- NOTE | 2021-06-19 09:51 | NUR ---
Chart review. Cont acute rehab. Will cont following as needed for dc needs.
--- NOTE | 2021-06-19 10:58 | NUR ---
Cont. working with therapy on acute rehab. Will cont. with discharge planning as needed for dc needs.
[2021-06-19 17:25] VITALS: BP 133/63
[2021-06-19 19:05] VITALS: BP 139/72
--- NOTE | 2021-06-20 00:24 | NUR ---
PT ALERT AND ORIENTED X 4. AMB TO BR WITH WALKER AND ASSIST X 1 WITHOUT DIFFICULTY. IMPULSIVE AT TIMES. PT TAKES MEDS IN APPLESAUCE WITHOUT DIFFICULTY. PT DENIES PAIN OR DISCOMFORT. BED ALARM ON FOR SAFETY. PT APPEARS TO BE SLEEPING ON HOURLY ROUNDS.
[2021-06-20 08:31] VITALS: BP 141/69
[2021-06-20 08:45] VITALS: BP 141/69
--- NOTE | 2021-06-20 18:17 | NUR ---
ASSUMED CAREOF PT AT 0700. PT USING CALL LIGHT APPROPRIATELY. WILL CONTNUE TO MONITOR.
--- NOTE | 2021-06-21 04:28 | NUR ---
RECEIVED CARE OF THIS PATIENT AT 1900. PATIENT ALERT AND ORIENTED X4 BUT FORGETFUL. HAS URGENCY AND FREQUENCY WITH URINARION. CAN BE IMPULSIVE BUT HAS CALLED APPROPRIATELY TONIGHT. DENIES PAIN. SLEPT OFF AND ON DURING NIGHT.
[2021-06-21 07:16] VITALS: BP 157/67
--- NOTE | 2021-06-21 16:44 | NUR ---
A/O, forgetful. calm and pleasant. patient chair rest for the shift. denied pain, no nausea or vomiting. continent. called for help to get to the bathroom. walked to the bathroom with a walker and standby assist, tolerated well.
[2021-06-21 19:45] VITALS: BP 139/72
--- NOTE | 2021-06-22 05:42 | NUR ---
ASSUME CARE 1900. PT/VITALS STABLE. DENIES ANY PAIN. A/O X 4. NO HALLUCINATIONS NOTED. DENEIS ANY PAIN. GOOD ENDURANCE TO ACTIVITY. NO DISTRESS NOTED THROUGH THE SHIFT. ASSESSMENT CHARTED. PROGRESSING WELL WITH POC. PLAN IS TO CONTINUE TO IMPROVE PHYSICAL ACTIVITY WITH PT/OT MANAGEMENT. WILL CONTINUE TO MONITOR AND FOLLOWW WITH POC
[2021-06-22 07:15] VITALS: BP 149/81
[2021-06-22 19:03] VITALS: BP 130/66
--- NOTE | 2021-06-23 00:17 | NUR ---
PT ALERT AND ORIENTED X 4. AMB TO BR WITH WALKER AND ASSIST X 1 WITHOUT DIFFICULTY. PT DENIES PAIN OR DISCOMFORT. BED ALARM ON FOR SAFETY. PT APPEARS TO BE SLEEPING ON HOURLY ROUNDS.
[2021-06-23 07:50] VITALS: BP 138/61
--- NOTE | 2021-06-23 08:55 | NUR ---
PT UP IN CHAIR. PT TOOK MEDS WHOLE WITHOUT ANY ISSUES. PT LUNGS CLEAR. PT UP WITH WALKER STAND-BY ASSIST. PT DOES CALL FOR ASSISTANCE, PT HAS URGENCY TO USE BATHROOM. PT HAS PADS FOR STRESS INCON. PT DENIES ANY PAIN.
--- NOTE | 2021-06-23 11:04 | H ---
[facility] [place] [address] [place] [address] HISTORY AND PHYSICAL Name: TAL GERARD Room #: 514-P ADM IN M.R.#: [id number] Admission: 06/16/21 Attend Phys: Arnel Choi MD Discharge: Date of : 43 Report #: [id number] THIS REPORT FOR: cc: Arnel Breaux David J. DO Smithson,Arnel Camilo MD ~ DATE OF SERVICE: 06/17/2021 HISTORY OF PRESENT ILLNESS: The patient is a 76-year-old white female who was originally admitted to [facility] on 06/12/2021 with vision changes, mental status changes and a fall 1 day before admission and then another one on the day of admission. She was noted to have right hand weakness and was having right gaze preference with some right inattention. She was noted to have acute renal insufficiency as well as an acute metabolic encephalopathy. She was seen by neurology. MRI of the brain was obtained. The MRI did not show acute changes, but there is a quite tiny subdural hematoma. Antithrombotic therapy was held and the patient is to have a repeat CT in about 2-3 days, noted as of yesterday per neurology. The patient has had a significant functional decline. She had some confusion last night and some hallucinations and did not sleep well. She has been admitted to the acute in-hospital inpatient rehabilitation peter. PAST MEDICAL HISTORY: Includes hypertension, elevated cholesterol. She had a prior CVA about 5 years ago. She is noted to have some premorbid memory deficits, but nevertheless has been living in the community. MEDICATIONS: Please see the full medication listing. ALLERGIES: No known drug allergies. SOCIAL HISTORY: The patient lives in a house 2 steps in, plus another step to get in. She did not utilize gait aids in the house, but utilized a front-wheeled walker when out of the home. There is a son and a daughter that lives nearby. The daughter apparently works with [employer] transplant unit as a coordinator, but has been a past event promotions coordinator over at [employer] per the patient's son's history. The daughter has been noted to be helping with bills prior to admission. REVIEW OF SYSTEMS: No current complaints of chest pain, shortness of breath or abdominal discomfort. PHYSICAL EXAMINATION: GENERAL: The patient is a 76-year-old white female in no obvious distress. VITAL SIGNS: Temperature 98, pulse 103, respirations 18, blood pressure 127/78. NEUROLOGIC: The patient is sleepy this morning, but responsive. She is in no obvious distress. She follows basic commands. Facies appeared to be symmetric. [address] [address] HISTORY AND PHYSICAL Name: GERARDTAL Karlene Room #: 514-P [facility] IN M.R.#: [id number] Admission: 06/16/21 Attend Phys: Arnel Choi MD Discharge: Date of : 41 Report #: [id number] I did not have her actually test again as far as extraocular movements. She was thought to have had some right crissy-inattention deficits. Functional range of motion of the upper and lower extremities. Strength of the right upper extremity is somewhat decreased to grade 4-/5. She has some decreased coordination. She needs cues and reminders. There is no clonus at the ankle. Strength is probably a grade 4-/5 bilaterally. CHEST: Sounded clear to auscultation. CARDIAC: Regular rate and rhythm. ABDOMEN: Bowel sounds positive, nontender. GENITOURINARY AND RECTAL: Deferred. EXTREMITIES: No focal calf swelling. ASSESSMENT: A 76-year-old white female with the following problem list: 1. Fall with small subdural hematoma. 2. Clinical cerebrovascular accident with right visual field deficit with crissy-inattention and right-sided weakness. 3. Closed head injury, status post fall x2 prior to admission. 4. Metabolic encephalopathy. 5. Renal insufficiency. 6. Hypertension. 7. Hyperlipidemia. 8. Prior history of a cerebrovascular accident. PLAN: The patient has been admitted for acute in-hospital inpatient rehabilitation. Please see the patient's previous and current functional status. As far as risk of complications, the patient has multiple medical comorbidities as noted above. Initial plan of care involves the interdisciplinary acute inpatient rehabilitation program. Measurable functional goals would be for the patient to become modified independent with transfers, mobility and ADLs and to improve as far as overall cognition and communication. Prognosis is reasonably good. Estimated length of stay probably at least 10 to 14 days. Potential barriers would include her multiple medical comorbidities and decreased functional status. The patient had some confusion and was thought to have some hallucinations per nursing staff. We will go ahead and ask psychiatry to assist regarding management. Neurology is consulted as well and she will need followup CT scan of her head with the noted small subdural. This was to be done in 2-3 days as per neurology. The patient meets diagnostic criteria for an acute in-hospital inpatient rehabilitation stay. She meets medical necessity criteria. We will have the franchise business consultant physicians that are noted above. Continue to follow. The hospitalist service will be involved regarding medical issues as well. The [address] [address] HISTORY AND PHYSICAL Name: TAL GERARD Room #: 514-P ADM IN M.R.#: [id number] Admission: 06/16/21 Attend Phys: Arnel Choi MD Discharge: Date of : 41 Report #: [id number] patient does have the tolerance for therapies and has appropriate discharge goals back to the home setting. <ELECTRONICALLY SIGNED> By: Arnel Choi MD 06/23/21 1104 [id number] 0823 Arnel Choi MD /nt
--- NOTE | 2021-06-23 13:19 | NUR ---
team meeting, recommendation, needs assist with pills and bills. diet reg with thin liquids. Will need initial supervision at home. No driving. Dc 06/26 with hh ( pt, ot, st, and nursing).
[2021-06-23 19:46] VITALS: BP 132/69
[2021-06-24 05:37] LABS: ABSOLUTE NEUTROPHILS 4.6 thou/uL (1.4-8.2); BASOPHILS 0.8 % (0.0-2.0); EOSINOPHILS 2.2 % (0.0-3.0); HEMATOCRIT 35.6 % (37.0-47.0); HEMOGLOBIN 11.6 gm/dL (12.0-15.0); LYMPHOCYTES 23.6 % (24.0-44.0); MCH 26.9 pg (26.0-34.0); MCHC 32.6 g/dL (28.0-37.0); MCV 82.7 fL (80.0-100.0); MONOCYTES 8.6 % (1.0-8.0); PLATELET COUNT 204 thou/uL (150-400); POLYS 64.8 % (36.0-66.0); RBC 4.31 mil/uL (4.20-5.00); RDW 16.9 % (10.5-14.5)
--- NOTE | 2021-06-24 05:46 | NUR ---
ASSUMED PT CARE THIS EVENING. P T IS ALERT AND ORIENTED X4. PT DID NOT C/O ANY FORM OF PAIN. PT IS NON-COMPLIANT WITH THR USE OF CALL LIGHT. PT IS SBA TO THE BR WITH WALKER. VS ARE WITHIN NORMAL RANGE AND MEDS GIVEN PER EMAR ORDERS. PT TOLEARTING RA. FALL PRECAUTIONS IN PLACE. WILL CONTINUE OT MONITOR.
[2021-06-24 06:30] LABS: CALCIUM 8.5 mg/dL (8.5-10.1); CREATININE 0.9 mg/dL (0.6-1.0); POTASSIUM 3.9 mmol/L (3.5-5.1)
--- NOTE | 2021-06-24 08:30 | NUR ---
cm left private duty, life alert and senior blue book with thai, she was working with OT.
--- NOTE | 2021-06-24 08:50 | NUR ---
PT SITTING IN CHAIR. PT UP WITH WALKER AND WITH STEADY GAIT. PT LUNGS CLEAR. PT STILL EXCITED ABOUT D/C TO HOME SOON. PT HAS PAD ON FOR STRESS INCON. PT TOOK MEDS WITH WATER NO ISSUES.
[2021-06-24 19:50] VITALS: BP 159/78
--- NOTE | 2021-06-25 05:25 | NUR ---
PATIENT AMBULATES IN THE ROOM WITH STEADY GAITS. PATIENT ENCOURAGED FLUIDS.PATIENT IS CALM AND COOPERATIVE WITH CARE AND MEDS.PATIENT IS UP AT EMELINA. CALL LIGHT AND PERSONAL ITEM WITHIN REACH. PATIENT IN BED ASLEEP AT THIS TIME BREATHING REGULAR AND UNLABOURED.
[2021-06-25 08:00] VITALS: BP 142/81
[2021-06-25 08:03] VITALS: BP 142/81
[2021-06-25] MEDS ORDERED: COLACE100 MG PO (08:53)
[2021-06-25] MEDS ORDERED: VITAMIN B-12500 MCG PO (08:53)
--- NOTE | 2021-06-25 14:14 | NUR ---
PT ALERT AND ORIENTED. VSS. DENIED HAVING PAIN OR DISCOMFORT. UP IN THE CHAIR THIS SHIFT. PARTICIPATED IN PT/OT. NO CONCERNS AT THIS TIME. PT PROGRESSING WELL TOWARDS DISCHARGE GOAL.
[2021-06-25 20:12] VITALS: BP 128/78
--- NOTE | 2021-06-26 00:45 | NUR ---
PT ALERT AND ORIENTED X 4. MODIFIED INDEPENDENT IN ROOM WITHOUT DIFFICULTY. PT TOOK HS MEDS WITH WATER WITHOUT DIFFICULTY. PT DENIES PAIN OR DISCOMFORT. PT APPEARS TO BE SLEEPING ON HOURLY ROUNDS.
[2021-06-26 07:54] VITALS: BP 131/70
[2021-06-26 09:28] VITALS: BP 131/70
--- NOTE | 2021-06-26 09:48 | NUR ---
Daughter not been able to come up prior to dc today. [facility]icked [facility] and referral sent. [facility] able to accept for [facility] needs. CM sent information to daughter about [employer] life alert.
[2021-06-26] MEDS ORDERED: ASPIRIN EC325 MG PO (10:12)
[2021-06-26] MEDS ORDERED: LIPITOR40 MG PO (14:04)
--- NOTE | 2021-06-27 10:54 | HC ---
[facility] [place] [address] CONSULTATION Name: TAL GERARD Room #: 514-P [facility].#: [id number] Admission: 06/16/21 Attend Phys: Arnel Choi MD Discharge: 06/26/21 Date of : 41 Report #: [id number] THIS REPORT FOR: cc: Arnel Breaux David J. DO Deutch, Neal B. PhD ~ DATE OF SERVICE: 06/21/2021 NEUROBEHAVIORAL STATUS EXAMINATION DATE OF CONSULTATION: 06/21/2021. ATTENDING PHYSICIAN: Arnel Choi M.D. TICK INSPECTOR: Gavino Sanchez, PhD CLINICAL PRESENTATION: The patient is a 76-year-old female admitted to the rehabilitation unit for a comprehensive inpatient rehabilitation program. She was initially admitted to the hospital on 06/12/2021 with mental status changes following a fall one day prior to admission. On admission, she was noted as having right-handed weakness and right gaze preference with right inattention. Assessment on admission was acute metabolic encephalopathy. An MRI noted a tiny subdural hematoma. Premorbid deficits in memory are reported. Diagnostic assessment on admission to the rehabilitation unit was a fall with small subdural hematoma, clinical cerebrovascular accident with right visual field deficit, inattention and right-sided weakness. The patient has a closed head injury, status post fall x 2 prior to admission, metabolic encephalopathy, renal insufficiency, hypertension, hyperlipidemia and prior history of cerebrovascular accident. A complete description of her medical condition and history can be found in her medical record. Neuropsychological consultation was requested to provide assistance in the assessment of cognitive and emotional status and provide recommendations and services. Prior to this most recent hospitalization, she was living independently in her own home. Her spouse in 1999. She has two children that are described as supportive. 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 She is a high school graduate. The patient states that she was independent with basic and instrumental activities of daily living prior to this most recent medical event. Delirium is described regarding having experienced visual hallucinations for approximately 3 days. Visual hallucinations have now resolved. TECHNIQUES UTILIZED: Clinical interview, review of medical records, staff consultation and behavioral observation, mini mental status exam 2 standard version, clock drawing. [address] [address] CONSULTATION Name: TAL GERARD Room #: 514-P [facility].#: [id number] Admission: 06/16/21 Attend Phys: Arnel Choi MD Discharge: 06/26/21 Date of : 41 Report #: [id number] EXAMINATION PROCEDURE: The patient was alert and cooperative with the assessment. She accurately described the reason for her hospitalization. Dizziness and twitching are described prior to poor balance and falls. She does not report experiencing emotional distress or cognitive disorder. Symptoms of anxiety, depression, difficulty with memory, word finding and concentration are denied. There is no report of alcohol/drug abuse. Frequent awakening during the night is reported, but other than that, she reports her sleep is normal. Performance on the MMSE 2 brief version was 12 of 16 suggesting severe deficits with a T score of 29. She was 3/3 for initial registration, 4/5 for orientation to time, 5/[address], 0/3 for immediate recall of 3 items after a brief time delay and distraction. Performance on the standard version of the MMSE 2 is extremely low with a raw score 21 of 30, which is a T score of 27 and percentile rank of 1. She was 1/5 for serial sevens. She was 2/2 for naming, 1/1 for repetition, 3/3 for comprehension. She could read and follow a single command and write a sentence. The patient had difficulty with copying a simple geometric design. Clock drawing was impaired with deficits in hand placement. The patient is presenting with impairment in immediate recall and sustained concentration indicating deficits in neurocognitive status. Speech therapy reports cognitive functioning is moderate to severe. Memory is severe. This type of presentation suggests deficits in neurocognitive functioning likely associated both with concussive event along with preexisting impaired cognition, possibly with Alzheimer type features. DIAGNOSTIC IMPRESSION: Major neurocognitive disorder, unspecified, with decreased insight -- extent to be determined, likely in the mild to moderate range. RECOMMENDATIONS: The patient will likely require assistance in the management of medication finances and nutrition. Her family should be informed of deficits in neurocognitive status. A followup neuropsych assessment is indicated to clarify neurocognitive functioning. Thank you very much for allowing me to provide the consultation on this patient. <ELECTRONICALLY SIGNED> By: Gavino Sanchez, PhD 06/27/21 1054 [id number] Gavino Sanchez, PhD /nt
== END 2021-06-26 11:30 | disposition home health service (06) | DRG 56 ==
PROVIDERS: Nurse Practitioner; Nurse Practitioner Family; ADMIT Physical Medicine & Rehabilitation; ATTEND Physical Medicine & Rehabilitation
DX: G81.91 Hemiplegia, unspecified affecting right dominant side (principal); I63.9 Cerebral infarction, unspecified; G93.41 Metabolic encephalopathy; I62.00 Nontraumatic subdural hemorrhage, unspecified; N17.9 Acute kidney failure, unspecified; R44.3 Hallucinations, unspecified; E87.6 Hypokalemia; E78.5 Hyperlipidemia, unspecified; E53.8 Deficiency of other specified B group vitamins; R26.9 Unspecified abnormalities of gait and mobility; M19.90 Unspecified osteoarthritis, unspecified site; Z66 Do not resuscitate; H53.9 Unspecified visual disturbance; F01.50 Vascular dementia, unspecified severity, without behavioral disturbance, psychotic disturbance, mood disturbance, and anxiety; I10 Essential (primary) hypertension; S09.90XA Unspecified injury of head, initial encounter; Z90.711 Acquired absence of uterus with remaining cervical stump; X58.XXXA Exposure to other specified factors, initial encounter; Y93.89 Activity, other specified; Y92.89 Other specified places as the place of occurrence of the external cause; Y99.8 Other external cause status
CPT/HCPCS: 10112

== ENCOUNTER 2021-09-22 19:30 | Inpatient (IN) | payer OTHER ==
[~2021-09-22] VITALS: Ht 149.9 cm; Wt 84.4 kg
[~2021-09-22 19:30] MED LIST changes: +ASPIRIN EC325 MG PO; +COLACE100 MG PO; +VITAMIN B-12500 MCG PO
[2021-09-22 19:37] VITALS: BP 138/52
[2021-09-22 20:25] LABS: ABSOLUTE NEUTROPHILS 4.2 thou/uL (1.4-8.2); BASOPHILS 0.9 % (0.0-2.0); HEMOGLOBIN 12.7 gm/dL (12.0-15.0); LYMPHOCYTES 7.1 % (24.0-44.0); MCH 26.5 pg (26.0-34.0); MCHC 32.5 g/dL (28.0-37.0); MCV 81.5 fL (80.0-100.0); MONOCYTES 8.6 % (1.0-8.0); PLATELET COUNT 164 thou/uL (150-400); POLYS 83.4 % (36.0-66.0); RBC 4.78 mil/uL (4.20-5.00); RDW 16.3 % (10.5-14.5)
[2021-09-22 20:30] LABS: CALCIUM 8.4 mg/dL (8.5-10.1); CREATININE 0.9 mg/dL (0.6-1.0); POTASSIUM 3.6 mmol/L (3.5-5.1)
[2021-09-22 20:57] LABS: URINE BILIRUBIN NEGATIVE (Negative); URINE BLOOD TRACE (Negative); URINE CLARITY CLEAR; URINE COLOR YELLOW; URINE GLUCOSE-RANDOM* NEGATIVE (Negative); URINE KETONES NEGATIVE (Negative); URINE LEUKOCYTES-REFLEX NEGATIVE (Negative); URINE NITRITE-REFLEX NEGATIVE (Negative); URINE PROTEIN (DIPSTICK) 1+ (Negative); URINE SPECIFIC GRAVITY 1.025 (1.005-1.035)
[2021-09-22 22:34] VITALS: BP 147/63
[2021-09-22] MEDS ORDERED: LIPITOR 40 MG T40 M1 PO (22:57)
[2021-09-22] MEDS ORDERED: VITAMIN B12-FO1 EAC1 PO (22:57)
[2021-09-22 23:46] VITALS: BP 126/74
[2021-09-22 23:55] VITALS: BP 152/86
--- NOTE | 2021-09-23 01:12 | NUR ---
PT ADMITTED TO 3W BED 352, ARRIVED TO UNIT AT APPROXIMATELY 2355 ACCOMPANIED BY ER STAFF. PT IS A&OX3, WOULD NOT ATTEMPT TO ANSWER ORIENTATION QUESTIONS REGARDING MONTH/YEAR. VSS UPON ADMISSION TO - ADMITTING DX IS WEAKNESS, ON 3W DUE TO POSITIVE COVID TEST. SLIGHT NON-PROUDCTIVE COUGH NOTED, WEAKNESS/FATIGUE, AND FEVER OF 100.7 NOTED UPON ADMISSION. ADMITTED TO MED/SURG. ON ROOM AIR WITH O2 SAT OF 93%. ASSESSMENTS DOCUMENTED. WILL CONTINUE TO OBSERVE FOR CHANGES
[2021-09-23 02:45] VITALS: BP 131/74
[2021-09-23 07:28] VITALS: BP 132/77
--- NOTE | 2021-09-23 11:57 | NUR ---
INITIAL ASSESSMENT: Received consult for discharge planning. ROJAS reviewed chart and spoke with nursing and attending physician. Pt was admitted from home due to hypoxia/AMS. Pt placed in Enhanced Isolation due to COVID. Pt has been febrile and is on room air. ID consulted. Per chart, pt has not received a COVID vaccination. ROJAS spoke with pt's dtr, Fanny, via phone. Introduced role of ROJAS. Pt's dtr is an RN at [facility] [employer]. Pt has been living at home alone. Pt was on 5N in June of 2021. Discharged home with Mio . Pt currently has private duty coming in several times a week to help with bathing and other homemaker services. Pt's PCP is Dr. Arnel Breaux. Pt's dtr requests SNF referral to be sent to [facility]. ROJAS spoke with Galilea at [facility], who states they will consider admitting pt after 21 days of isolation from COVID positive test. ROJAS discussed with pt's dtr, who requests referral to be sent to [facility], to have on file. Pt's dtr requests a 5N eval. SW discussed alternate post-acute options if 5N is not an option. Pt's dtr does not want pt to go to [facility] or [facility] (current SNFs who are accepting COVID pts). ROJAS discussed with 5N rehabilitation therapy technician. Pt to be evaluated for admission to 5N tomorrow after therapy evals have been completed. ROJAS did fax initial SNF referral to [facility] for review. ROJAS is following to assist as needed with discharge planning.
[2021-09-23 13:22] VITALS: BP 104/62; BP 110/61; BP 120/68
[2021-09-23 15:41] VITALS: BP 118/66
--- NOTE | 2021-09-23 15:42 | NUR ---
assumed care of pt at 0700. pt aox2-3 no acute distress. pleasant and making jokes. while using commode this morning pt became lethargic and difficult to arouse, but still able to follow simple commands. pt needed max assist to get back to bed. phyisician notified - placed on telemetry and cardiology consultation pending. no events on telemetry throughout shift. vitals stable. daughter updated on patients condition by phone. remains on room air. moderate appetite. wcm.
[2021-09-23 19:52] VITALS: BP 158/89
[2021-09-24 02:11] LABS: HEMATOCRIT 37.1 % (37.0-47.0); HEMOGLOBIN 12.3 gm/dL (12.0-15.0); MCH 26.2 pg (26.0-34.0); MCHC 33.2 g/dL (28.0-37.0); RBC 4.69 mil/uL (4.20-5.00); WBC 7.1 thou/uL (4.0-11.0)
--- NOTE | 2021-09-24 03:12 | NUR ---
Able to answer orientation questions but very forgetful and needs reorientation. Tolerating room air well with no respiratory distress. No syncopal episode. External cath in place , periods of incontinence. Cont. on enhanced precaution ,afebrile. Bed alarm on for safety. She slept well during the night.
[2021-09-24 03:43] LABS: CALCIUM 8.2 mg/dL (8.5-10.1); CREATININE 0.7 mg/dL (0.6-1.0); POTASSIUM 3.4 mmol/L (3.5-5.1)
[2021-09-24 05:44] VITALS: BP 165/95
[2021-09-24 07:20] VITALS: BP 137/76
--- NOTE | 2021-09-24 07:39 | EKG ---
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
[2021-09-24 11:03] VITALS: BP 134/66; BP 144/89; BP 149/74
--- NOTE | 2021-09-24 11:25 | HC ---
[facility] [place] [address] CONSULTATION Name: TAL GERARD Room #: 352-P ADM IN M.R.#: [id number] Admission: 09/22/21 Attend Phys: Sherri Salcido MD Discharge: Date of : 41 Report #: [id number] THIS REPORT FOR: cc: Arnel Breaux David J. DO Barry, Joseph W. MD ~ DATE OF SERVICE: 09/23/2021 INFECTIOUS DISEASE CONSULTATION DATE OF CONSULTATION: 09/23/2021 ATTENDING PHYSICIAN: Dr. Cooper Jamison REASON FOR EVALUATION: COVID-19 infection. HISTORY OF PRESENT ILLNESS: Chart reviewed. The patient examined. This is a 76-year-old woman with history of hypertension, also has history of subdural hematoma, who presented to the Emergency Room with complaints of progressive weakness, fatigue, poor p.o. intake and mild nonproductive cough, noted had fallen as well. On further initial evaluation, she was tested for SARS-CoV-2, which was positive. Additional studies, urinalysis unremarkable. Chest x-ray without acute process. Procalcitonin less than 0.05. Sed rate of 18. Blood cultures sterile thus far. She had low-grade temperature elevations to 100.7 more recently, 99.7 earlier today. She has not required supplemental oxygen at this point. She is somewhat anxious, mildly confused. ALLERGIES: None known. CURRENT MEDICATIONS: Include guaifenesin, docusate sodium, aspirin, atorvastatin, ascorbic acid, dexamethasone, heparin, famotidine, zinc, acetaminophen and ondansetron. PAST MEDICAL HISTORY: As described above, hypertension, history of subdural hematoma, hyperlipidemia, previous CVA, previous syncopal episode. SOCIAL HISTORY: Former smoker. No illicit drug use. No ethanol. FAMILY HISTORY: Noncontributory. REVIEW OF SYSTEMS: Otherwise, unremarkable. PHYSICAL EXAMINATION: GENERAL: She appears somewhat ill, in neay-qu-swkpiuki distress, mildly confused. VITAL SIGNS: Temperature 99.7. Pulse 94, respirations 16, blood pressure is [facility] [address] [place] [address] CONSULTATION Name: TAL GERARD Room #: 352-P [facility] IN ..#: [id number] Admission: 09/22/21 Attend Phys: Sherri Salcido MD Discharge: Date of : 41 Report #: [id number] 110/61. SKIN: Warm, dry, no rashes. HEENT: Normocephalic. Extraocular muscles intact. NECK: Supple. LUNGS: Diminished breath sounds. Few scattered crackles at the bases. HEART: Borderline tachycardic, regular. I do not appreciate a murmur. ABDOMEN: Soft, mildly distended, nontender. EXTREMITIES: No cyanosis. GENITOURINARY AND RECTAL: Deferred. LABORATORY DATA: Initial CBC: White count of 5.0, H and H of 12.7 and 39.0, platelets of 164. Electrolytes: Sodium 136, potassium 3.6, chloride 100, bicarbonate is 21, anion gap of 15, BUN and creatinine 11 and 0.9. Ur[address] CT of the head, no acute intracranial abnormalities. Coronavirus testing was positive. Chest x-ray compared to 06/12/2021, no acute abnormalities. Cultures sterile thus far. ASSESSMENT AND PLAN: Febrile illness with a positive COVID test. I suspect that is what is driving this. At this point, not specifically complaints of fatigue, weakness. At this point, there is no primary evidence of inflammatory process involving the lungs, although it certainly may be a lag time and if she requires oxygen, we would likely initiate therapy including remdesivir in addition to corticosteroids, and also would consider monoclonal antibody as well. I think we will hold off on the antibacterials for the moment. We will follow. <ELECTRONICALLY SIGNED> By: Samson Roldan MD 09/24/21 1125 1446 0021 Samson Roldan MD /nt
--- NOTE | 2021-09-24 14:34 | NUR ---
ROJAS reviewed chart and spoke with nursing and attending physician. Pt remains in Enhanced Isolation due to COVID. Pt is afebrile and on O2. Pt is on IV steroids. No weekend discharge planned. 5N consult ordered. 5N to re-evaluate pt on Tuesday. ST eval ordered today. ROJAS spoke with pt's dtr, Fanny, via phone to provide update. ROJAS is following to assist as needed with discharge planning.
[2021-09-24 16:04] VITALS: BP 123/81
--- NOTE | 2021-09-24 18:12 | NUR ---
ASSUMED PATIENT CARE AT 0700. A/O X4. AMBULATED IN ROOM. SLOWLY TOWARDS POC GOALS.
[2021-09-24 19:34] VITALS: BP 128/67
[2021-09-25 04:27] VITALS: BP 146/90
[2021-09-25 07:35] VITALS: BP 148/79
[2021-09-25 16:50] VITALS: BP 126/79
[2021-09-25 20:34] VITALS: BP 151/88
--- NOTE | 2021-09-26 01:28 | NUR ---
temperature elevated tonight. pt is not wanting to take any acetaminophen. she is wanting to rest. reduced temperature in the room and took off heavy blanket, that was on her. encouraged water intake. she was incontinent in the chair at shift change and has used the bsc when asked. resting at this time.
[2021-09-26 06:01] VITALS: BP 134/77
[2021-09-26 07:31] VITALS: BP 124/53
[2021-09-26 15:28] VITALS: BP 130/71
[2021-09-26 19:11] VITALS: BP 142/77
--- NOTE | 2021-09-27 03:05 | NUR ---
Pt. slept well during the night. Tolerating room air well. Cont. on enhanced precaution,afebrile. Incontinent of bladder , brief soaking wet before assisted up to commode.
[2021-09-27 04:08] VITALS: BP 132/73
[2021-09-27 07:29] VITALS: BP 137/74
[2021-09-27 15:22] VITALS: BP 130/81
--- NOTE | 2021-09-27 18:35 | NUR ---
PATIENT HAS BEEN ENCOURAGED TO EAT AND DRINK ALL DAY. SHE WAS INC OF STOOL THIS AM. SHE DID SIT AT BED SIDE TO EAT SOME DINNER. PATIENT IS RESTING IN BED WITH CALL [place] IN REACH.
[2021-09-27 19:45] VITALS: BP 141/88
[2021-09-28 03:48] VITALS: BP 146/77
--- NOTE | 2021-09-28 04:47 | NUR ---
PROGRESS PT A/O X4 BUT FORGETFUL. ON ROOM AIR LUNGS CLEAR IN UPPER DUVAL BUT COARSE CRACKLES NOTED IN BILATERAL BASES. PT DENIES SOB AND COUGH. VOIDING QS BUT INCONTINENT AT TIMES. CONTINUES TO HAVE POOR APPETITE. UP WITH SBA TO BSC TOLERATING WELL. CONTINUE POC.
[2021-09-28 08:11] VITALS: BP 153/84
[2021-09-28 10:15] VITALS: BP 78/50
[2021-09-28 10:17] LABS: BE(vivo) -5.3 mmol/L (-2 to +3); PCO2 25.6 mmHg (35.0-45.0); PO2 262.3 mmHg (80.0-100.0); sO2 99.6 % (92.0-98.0)
[2021-09-28 11:15] VITALS: BP 137/86
--- NOTE | 2021-09-28 13:04 | NUR ---
RN RECHECKED VS AT THIS TIME, VSS, ALL WNL, 93% ON ROOM AIR.
--- NOTE | 2021-09-28 13:22 | NUR ---
1005: RN CALLED INTO ROOM FOR REPORT OF PT "PASSING OUT" AFTER USING THE BSC. UPON ARRIVAL TO ROOM, PT NOTED TO BE SITTING ON THE FLOOR, SLUMPED OVER WITH CNAS AT BEDSIDE. RAPID RESPONSE INITIATED BY THIS RN. PT MOANING, OBTUNDED, WITHDRAWAL FROM PAIN ONLY WITH STERNAL RUB. HR 110S AND REGULAR, BG 114, SPO2 LOW 80S ON RA-PT PLACED ON NRB AT 15L WITH IMPROVEMENT OF SPO2 TO 100%; MANUAL BP 76/50. MAX ASSIST DEPENDENTLY BACK INTO BED; FEET ELEVATED. PAGED BY DINING CAR STEWARD. 1010: PT MORE ALERT AT THIS TIME, RESPONDING TO RN'S VOICE. PT ORIENTED TO SELF, PLACE, AND TIME. PT PLACED ON NC AT 3L WITH SPO2 IN MID 90S. HR DOWN TO 100S AT THIS TIME. BP IMPROVED WITH SYSTOLIC 120-135. PT DROWSY BUT FOLLOWS COMMANDS AND ABLE TO CONVERSE WITH RN. DR. ROBLES AT BEDSIDE. EKG WNL-SINUS TACHYCARDIA, LABS SENT, ABG SENT. PER DR. ROBLES, LIKELY VASOVAGAL EVENT SIMILAR TO ADMISSION DIAGNOSIS, TO REVIEW CHART/LABWORK/EKG/TELEMETRY AND PLACE ADDITIONAL ORDERS IF NEEDED. RN TO CALL PT'S FAMILY TO NOTIFY.
--- NOTE | 2021-09-28 13:29 | NUR ---
1115: RN SPOKE WITH PT'S DAUGHTER, ALEKS VIA TELEPHONE. RN NOTIFIED HER OF PT'S SYNCOPAL EVENT AND SUBSEQUENT RAPID RESPONSE. PT'S DAUGHTER VERBALIZED UNDERSTANDING. KB REPORTS THIS IS NOT UNCOMMON FOR PATIENT AND IT HAS BEEN EVALUATED AN OUTPATIENT, SHE ENCOURAGED RN TO PUSH PO FLUIDS AND INTAKE. RN UPDATED DAUGHTER THAT POC TO TRANSITION TO REHAB LEVEL OF CARE WILL CONTINUE, BUT ON HOLD UNTIL TOMORROW. DAUGHTER DENIES OTHER CONCERNS AT THIS TIME. RN TO CALL FOR FURTHER UPDATES IN POC.
--- NOTE | 2021-09-28 13:31 | NUR ---
1315: RN AGAIN SPOKE WITH PT'S DAUGHTER WHO EXPRESSES CONCERNS THAT PT IS "GIVING UP" ASKING IF PT CAN GET FEEDING TUBE OR IVF TO "PERK HER UP" RN NOTIFIED PT'S DAUGHTER THAT SHE WILL HAVE THE MD CALL HER WHEN AVAILABLE. RN TO DISCUSS WITH DR. ROBLES IF PT CAN BE STARTED ON IVF SHE HAS MINIMAL PO INTAKE-NO BREAKFAST OR LUNCH. PT REPORTS SHE IS "TRYING" BUT MINIMAL FLUID INTAKE NOTED BY RN.
--- NOTE | 2021-09-28 13:49 | NUR ---
1345: RN DISCUSSED POC WITH DR. ROBLES. RN NOTIFIED HIM PT SEEMS DEPRESSED, REFUSING TO EAT, DID NOT EAT BREAKFAST OR LUNCH AND ONLY TAKING MINIMAL FLUIDS--APPROX. 150MLS OF WATER WITH MEDS. RN REQUESTS STARTING IVF WITH HOPES OF IMPROVING BP. DR. ROBLES TO PLACE ORDERS FOR LABS AND FLUIDS. RN ALSO REQUESTS MD CALL PT'S DAUGHTER ALEKS WHEN ABLE.
[2021-09-28 14:20] LABS: HEMATOCRIT 44.6 % (37.0-47.0); HEMOGLOBIN 13.9 gm/dL (12.0-15.0); MCH 25.1 pg (26.0-34.0); MCHC 31.2 g/dL (28.0-37.0); MCV 80.5 fL (80.0-100.0); PLATELET COUNT 313 thou/uL (150-400); RBC 5.55 mil/uL (4.20-5.00); RDW 15.5 % (10.5-14.5)
[2021-09-28 14:22] LABS: CALCIUM 8.7 mg/dL (8.5-10.1); CREATININE 1.2 mg/dL (0.6-1.0); POTASSIUM 3.1 mmol/L (3.5-5.1)
--- NOTE | 2021-09-28 14:34 | NUR ---
PT WITH SYNCOPAL EVENT AND RAPID RESPONSE CALLED. WILL REASSESS FOR POSSIBLE ADMISSION TO 5N REHAB TOMORROW 09/29
--- NOTE | 2021-09-28 14:51 | EKG ---
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
[2021-09-28 15:02] LABS: ABSOLUTE NEUTROPHILS 8.5 thou/uL (1.4-8.2); ATYPICAL LYMPHS 2 %; POIKILOCYTOSIS 1+
[2021-09-28 15:03] LABS: ANISOCYTOSIS 1+
[2021-09-28 15:51] VITALS: BP 137/72
--- NOTE | 2021-09-28 16:00 | NUR ---
ROJAS reviewed chart and spoke with nursing and attending physician. Pt remains in Enhanced Isolation due to COVID. Pt is afebrile and on room air. Pt had syncopal episode this morning. Cardiology consulted. ROJAS discussed case with rehab trainer. Therapy on hold at this time. ROJAS spoke with pt's dtr, Fanny, via phone to provide update. Pt's dtr requests a psych consult to possibly start pt on an anti-depressant. ROJAS sent message to attending physician. ROJAS explained to pt's dtr that pt will need to be agreeable with doing therapy in order to qualify for admission to . Pt would remain on 3W as a rehab pt, until out of isolation. ROJAS is following to assist as needed with discharge planning.
[2021-09-28 19:30] VITALS: BP 131/76
--- NOTE | 2021-09-28 19:49 | NUR ---
PT PROGRESSING WITH PLAN OF CARE EVIDENCED BY IMPROVEMENT IN RESPIRATORY SYMPTOMS, PLAN FOR PT TO EVAL FOR REHAB TOMORROW
--- NOTE | 2021-09-29 01:31 | NUR ---
PROGRESS PT A/O X4. VSS, AFEBRILE. TELEMETRY INTACT READING SR/ST WITH RATES IN 80'S TO 90'S. LUNGS CLEAR ON ROOM AIR. IV REPLACED IN RIGHT HAND IVF'S INFUSING ORDERED. POTASSIUM IVPB ADMINISTERED X 2. PT NOT OOB THIS SHIFT VOIDED ON BEDPAN . SKIN C/D/I. PLAN IS TO BEGIN PT/OT TOMORROW.
[2021-09-29 04:53] VITALS: BP 114/53
[2021-09-29 04:54] LABS: CREATININE 0.7 mg/dL (0.6-1.0)
[2021-09-29 05:26] LABS: POTASSIUM 4.2 mmol/L (3.5-5.1)
[2021-09-29 07:55] VITALS: BP 102/81
--- NOTE | 2021-09-29 12:13 | NUR ---
Consider adding appetite stimulant r/t poor intakes >7 days. Start PPN if PO intakes do not improve x next 72 hours.
[2021-09-29 15:43] VITALS: BP 133/73
--- NOTE | 2021-09-29 15:47 | NUR ---
SW reviewed chart and spoke with nursing and attending physician. Pt remains in Enhanced Isolation due to COVID. Pt is afebrile and on room air. Cardiology consulted yesterday. 5N is following. SW requested pt's dtr be called when 5N is evaluating and meeting with pt to discuss recommendation for rehab. Pt has been resistant to staying for rehab. Pt's dtr to discuss with pt. Awaiting input from 5N at this time. SW is following to assist as needed with discharge planning.
--- NOTE | 2021-09-29 17:59 | NUR ---
PT ALERT AND ORIENTED TIMES FOUR. VSS, ROOM AIR. IVF INFUSING PER ORDER. PT DENIES PAIN/SOA. PT WORKED WELL WITH PT/OT. PT TOLERATES MEDS AND MEALS. POSSIBLE PLANS TO TRANSFER TO 5N TOMORROW. WILL CONTINUE TO MONITOR.
[2021-09-29 19:28] VITALS: BP 157/91
--- NOTE | 2021-09-30 03:21 | NUR ---
PROGRESS PT A/O X4. LUNGS CLEAR BUT DIMINISHED, ON ROOM AIR. VSS, AFEBRILE. UP WITH SBA TO BSC TOLERATING WELL DENIES SYNCOPE. IV TO RH INFUSING NS AT 75CC/HR. SLEPT MOST OF NIGHT DENIES PAIN. PLAN TO TRANSITION TO REHAB STATUS WHEN MEDICALLY STABLE.
[2021-09-30 03:52] VITALS: BP 172/96
[2021-09-30 07:26] VITALS: BP 158/88
[2021-09-30 11:28] VITALS: BP 158/88
--- NOTE | 2021-09-30 11:38 | NUR ---
SW reviewed chart and spoke with nursing and attending physician. Pt remains in Enhanced Isolation due to COVID. Pt is afebrile and on room air. Pt is progressing towards goals for discharge. Case discussed with 5N rehab tech. 5N to contact pt's dtr to discuss eventual discharge plan. ROJAS left voice message for the admissions dept at [facility] to check to see if their isolation policy is still 21 days for COVID pts. ROJAS is following to assist as needed with discharge planning.
[2021-09-30 15:53] VITALS: BP 158/88
--- NOTE | 2021-09-30 17:38 | NUR ---
PT A/O X 4. PT INCONTINENT AND STATES SHE "DOESNT WANT TO GET UP TO GO TO THE BATHROOM" TO THIS RN. PT COMPLAINS OF MISSING CELL PHONE, THIS RN LOOKED IN ROOM WITHOUT SUCCESS IN FINDING. PT IRRITABLE THROUGHOUT SHIFT. FALL PRECAUTIONS IN PLACE. WILL CONTINUE TO MONITOR.
[2021-09-30 19:51] VITALS: BP 148/94
--- NOTE | 2021-09-30 23:12 | NUR ---
PT ALERT AND ORIENTED X4. VSS AFEBRILE.UNLABORED ON RA. PT IRRITABLE . SHE STATED SHE WANTS SOMEONE TO TALK TO. SHE IS TIRED OF BEING POKED. SHE IS TIRED OF TAKING MEDIATIONS. MUCH ENCOURAGEMENT GIVEN TO PT. BED DOWN. CALL LIGHT IN REACH. BED ALARM IS ON.
[2021-10-01 04:27] VITALS: BP 150/64
[2021-10-01 05:03] LABS: HEMATOCRIT 36.5 % (37.0-47.0); HEMOGLOBIN 12.3 gm/dL (12.0-15.0); MCH 26.4 pg (26.0-34.0); MCHC 33.6 g/dL (28.0-37.0); MCV 78.6 fL (80.0-100.0); RBC 4.65 mil/uL (4.20-5.00); RDW 15.6 % (10.5-14.5); WBC 7.8 thou/uL (4.0-11.0)
[2021-10-01 05:18] LABS: CALCIUM 8.1 mg/dL (8.5-10.1); CREATININE 0.6 mg/dL (0.6-1.0); POTASSIUM 3.1 mmol/L (3.5-5.1)
--- NOTE | 2021-10-01 05:58 | NUR ---
PT PROGRESSING SLOWLY TOWARDS D/C GOALS. VSS AFEBRILE THIS AM . UNLABORED ON RA. PT INCONTINENT OF URINE IN LG AMTS. PT HAD 1 MED SOFT STOOL THIS AM ON BSC. DENIED PAIN OR SOA THIS AM. FALL PRECAUTIONS IN PLACE.
[2021-10-01 07:10] VITALS: BP 135/73
[2021-10-01 11:01] VITALS: BP 135/73
--- NOTE | 2021-10-01 13:11 | NUR ---
ROJAS reviewed chart and spoke with nursing and attending physician. Pt remains in Enhanced Isolation due to COVID. Pt is afebrile and on room air. ROJAS spoke with Regina in admissions at [facility], who states that the earliest they would be able to accept pt is October 07. Isolation restrictions have been updated to 14 days. Case discussed with Frankie youth liaison officer. Pt's family is adamant about pt staying at [facility] until able to go to [facility]. Awaiting input from Frankie at this time. ROJAS is following to assist as needed with discharge planning.
[2021-10-01 15:25] VITALS: BP 144/71
--- NOTE | 2021-10-01 18:18 | NUR ---
RESUMED CARE THIS AM. PT IRRITABLE THROUGHOUT SHIFT. PT UP TO CHAIR X 2 TODAY. NO COMPLAINTS OF PAIN TODAY. SPOKE WITH PT DAUGHTER, ALEKS, TODAY, PT DAUGHTER UNHAPPY PT WAS PUT ON BEDPAN. PT DAUGHTER IS RN AND HAD LIST OF DEMANDS FOR THIS RN. PT DAUGHTER CONCERNED "PT/OT WILL REFUSE TO SEE MOM BECAUSE SHE IS GOING TO GO TO REHAB STATUS". EDUCATED PT DAUGHTER ABOUT TREATMENT. WILL CONTINUE TO MONITOR.
[2021-10-01 19:34] VITALS: BP 136/69
--- NOTE | 2021-10-02 03:56 | NUR ---
ASSUMED CARE AROUND 1900. PT IS ALERT AND ORIENTED BUT EASILY AGITATED AND FORGETFUL. PT HAS AD MULTIPLE INCONTINENCE EPISODES OVERNIGHT. PT UP TO RESTROOM MULTIPLE TIMES THIS SHIFT WITHOUT INCIDENT. PT IS RESISTENT TO ABULATION AIDS AND OTHER SAFEY PRECAUTIONS BUT HAS REMAINED FREE OF FALLS. PT EDUCATED REGARDING MEDICATIONS, PLAN OF CARE, AND SAFETY PRECAUIONS- REINFORCEMENT IS NECESSARY. VSS. NO ACUTE MEDICAL EVENTS
[2021-10-02 04:10] VITALS: BP 131/66
[2021-10-02 07:24] VITALS: BP 119/64
[2021-10-02 11:55] VITALS: BP 119/64
[2021-10-02 17:15] VITALS: BP 137/64
--- NOTE | 2021-10-02 17:25 | NUR ---
RESUMED CARE THIS AM. PT IN BETTER MOOD TODAY, MORE AGREEABLE TO CARE AND LESS IRRITABLE. NO COMPLAINTS OF PAIN. SPOKE WITH FAMILY AND GAVE UPDATE. FALL PRECAUTIONS IN PLACE. WILL CONTINUE TO MONITOR.
[2021-10-02 19:22] VITALS: BP 137/67
--- NOTE | 2021-10-02 21:31 | NUR ---
PT SLEEPING IN BED WITH COVERS OVER HER HEAD. IVF INTACT. LUNGS WITH CRACKLES. PALE SKIN TONE. PT COMPLIANT WITH HS MEDS AND ASSESSMENT. PT GROANED AT HAVING TO TAKE HS MEDS, BUT COMPLIED. BED ALARM ON.
[2021-10-03 03:21] VITALS: BP 131/89
[2021-10-03 05:03] LABS: HEMATOCRIT 35.7 % (37.0-47.0); HEMOGLOBIN 11.6 gm/dL (12.0-15.0); MCH 25.6 pg (26.0-34.0); MCHC 32.4 g/dL (28.0-37.0); MCV 78.9 fL (80.0-100.0); RBC 4.53 mil/uL (4.20-5.00); RDW 15.7 % (10.5-14.5); WBC 6.3 thou/uL (4.0-11.0)
[2021-10-03 05:21] LABS: CALCIUM 8.1 mg/dL (8.5-10.1); CREATININE 0.6 mg/dL (0.6-1.0)
[2021-10-03 05:27] LABS: POTASSIUM 2.8 mmol/L (3.5-5.1)
[2021-10-03 07:10] VITALS: BP 134/54
[2021-10-03 14:57] VITALS: BP 135/72
[2021-10-03 18:48] VITALS: BP 126/72
[2021-10-04 04:02] VITALS: BP 157/86
[2021-10-04 07:11] VITALS: BP 143/71
--- NOTE | 2021-10-04 07:31 | NUR ---
Pt. slept fair during the night. Tolerating room air well. Cont. on enhanced precaution,afebrile. Bed alarm on. Incontinent of bladder this am. Wears brief.
[2021-10-04 15:05] VITALS: BP 136/79
--- NOTE | 2021-10-04 17:38 | NUR ---
PT RESTING IN BED MOST OF THE DAY, A&OX4, PLESANT BUT EXCITABLE. REPORTS SHE IS READY TO GET OUT OF HERE. PT HAS STRESS INCONTINENCE OF URINE AND HAD ONE EPISODE OF STOOL INCONTINENCE, STOOL LOOSE . LUNGS DIMINISHED WITH PRODUCTIVE COUGH, AFEBRILE DURING SHIFT. FALL PRECAUTIONS MAINTAINED, ENCOURAGED TO USE CALL LIGHT.
--- NOTE | 2021-10-04 18:07 | NUR ---
PT AMBULATED TO BATHROOM AT THIS TIME WITH WALKER, GAIT BELT DONED, FALL PRECAUTIONS MAINTAINED. GAIT STABLE, PT REPORTS SHE FEELS GLAD TO BE UP WALKING AND DENIES DIZZINESS OR FATIGUE.
[2021-10-04 19:27] VITALS: BP 131/64
--- NOTE | 2021-10-04 22:16 | NUR ---
PT RESTING IN BED, COVERS OVER HER HEAD. IVF INTACT. PT PLEASANT BUT CURSING ABOUT TAKING MEDS AND SENTENCE OF CURSING WHEN RECEIVING HEPARIN. PT STATED SHE THOUGHT SHE MIGHT BE LEAVING TOMORROW. REMAINS INCONTINENT. BED ALARM ON.
--- NOTE | 2021-10-04 22:50 | NUR ---
PT HAS OVER 10 BOTTLES OF ENSURE IN HER ROOM. PT STATES SHE PLANS ON TAKING THEM HOME. PT VERBALIZED THAT SHE KNOWS SHE NEEDS TO DRINK MORE.
[2021-10-05 03:03] VITALS: BP 134/58
[2021-10-05 05:43] LABS: HEMATOCRIT 31.5 % (37.0-47.0); HEMOGLOBIN 10.7 gm/dL (12.0-15.0); MCH 26.7 pg (26.0-34.0); MCHC 33.8 g/dL (28.0-37.0); RBC 3.99 mil/uL (4.20-5.00); RDW 15.7 % (10.5-14.5); WBC 5.1 thou/uL (4.0-11.0)
[2021-10-05 05:49] LABS: CALCIUM 8.1 mg/dL (8.5-10.1); CREATININE 0.6 mg/dL (0.6-1.0); POTASSIUM 3.2 mmol/L (3.5-5.1)
[2021-10-05 07:31] VITALS: BP 135/76
[2021-10-05 09:00] VITALS: BP 117/55
--- NOTE | 2021-10-05 12:28 | NUR ---
ROJAS reviewed chart and spoke with nursing and attending physician. Pt remains in Enhanced Isolation due to COVID. Pt is afebrile and on room air. ROJAS spoke with Hanna at [facility], who states they received the referral and are unable to accept pt at this time. ROJAS spoke with Nazia at [facility], who states that they have not reviewed pt's info. The assigned [facility] liaison for [facility], Jeremiah, is off today. ROJAS refaxed initial referral with updates to [facility] for review. ROJAS faxed clinical/therapy updates to [facility] for review. ROJAS spoke with Regina in admissions, who states that their plan is for pt to be admitted to their facility on 10/07/2021. Regina to review info with clinical team today. ROJAS spoke with pt's dtr, Fanny, via phone to provide update. Plan is for pt to discharge to [facility] on Tuesday. Awaiting input from [facility] at this time to see if they will consider taking pt. ROJAS is following to assist as needed with discharge planning.
[2021-10-05 15:26] VITALS: BP 117/55
[2021-10-05 19:37] VITALS: BP 141/62
--- NOTE | 2021-10-05 19:38 | NUR ---
RN ASSUMED PT'S CARE AT 0700AM-1900PM, PT IS A&OX4 , PT IS ON ROOM AIR, PT'S VS ARE STABLE, BUT PT STILL HAS POOR EATING AND POOR DRINKING, RN HAS CALLED [facility] DR TO REPORT ABNORMAL LAB RESULTS, NEW ORDER RECEIVED, PT 'S WAEKNESS HAS SOME IMPROVED, PT NEEDS HELP TO BSC .
[2021-10-06 00:07] LABS: MAGNESIUM 2.3 mg/dL (1.8-2.4); POTASSIUM 3.2 mmol/L (3.5-5.1)
--- NOTE | 2021-10-06 03:21 | NUR ---
Pt. has slept well during the night. Tolerating room air well. Cont. on enhanced precaution,afebrile. Repea K level still low , replaced per standing order. Incontinent of bladder. making some progress towards care plan goals.
[2021-10-06 04:25] VITALS: BP 143/69
[2021-10-06 07:19] VITALS: BP 136/78
--- NOTE | 2021-10-06 14:58 | NUR ---
ROJAS reviewed chart and spoke with nursing and attending physician. Pt remains in Enhanced Isolation due to COVID. Pt is afebrile and on room air. Pt is progressing towards goals for discharge to [facility] tomorrow. ROJAS has left voice messages for both Regina and Galilea in admissions to confirm plan and request time they can admit pt. ROJAS spoke with pt's dtr, Fanny, via phone to provide update. Fanny states she is able to provide transportation if needed. Awaiting call back from [facility]. ROJAS is following to assist as needed with discharge planning.
[2021-10-06 16:04] VITALS: BP 117/62
--- NOTE | 2021-10-06 18:46 | NUR ---
RN ASSUMED PT'S CARE AT 0700AM, PT IS A&OX4, PT IS ON ROOM AIR, PT'S VS AND O2SAT ARE STABLE, PT DENIES PAIN AND SOB AT DAY SHIFT, PT'S WEAKNESS AND EATING HAVE IMPROVED , PT HAS A GOOD BATH WITH ASSIT TODAY, PT MAY DC TO SNF TOMORROW.
[2021-10-06 19:29] VITALS: BP 118/53
--- NOTE | 2021-10-07 03:09 | NUR ---
Pt. has slept well during the night. Tolerating room air well. Cont. on enhanced precaution,afebrile. Up with assist to commode to void with occasional periods of incontinence. Progressing towards discharge goals.
[2021-10-07 03:34] VITALS: BP 129/68
[2021-10-07 07:19] VITALS: BP 125/68
--- NOTE | 2021-10-07 10:21 | NUR ---
DISCHARGE NOTE: ROJAS reviewed chart and spoke with nursing and attending physician. Pt is medically stable for discharge to [facility] today. ROJAS had received call from Galilea at [facility], who has spoken with pt's dtr to discuss admission. All agreeable with plan. Pt's dtr would like to provide transportation. ROJAS discussed with attending physician. Discharge ppwk to be completed early. ROJAS faxed ppwk to [facility] and spoke with both Galilea and Regina at [facility]. Confirmed info was received. All agreeable with plan for admission. ROJAS spoke with pt's dtr this morning. Fanny is en route to [facility]. Chart copy requested. ROJAS spoke with pt's nurse and provided number for report. No additional SW needs identified at this time, but is available to assist should needs arise.
== END 2021-10-07 10:56 | DRG 177 ==
LOC: ER 19:30 → EROBS 21:43 → 3W 21:43 → ER 22:06 → EROBS 22:06 → 3W 23:49
PROVIDERS: Emergency Medicine; Hospitalist; Nurse Practitioner; Nurse Practitioner Family; ADMIT Hospitalist; ATTEND Hospitalist
DX: U07.1 COVID-19 (principal); G93.41 Metabolic encephalopathy; R65.11 Systemic inflammatory response syndrome (SIRS) of non-infectious origin with acute organ dysfunction; E44.0 Moderate protein-calorie malnutrition; I10 Essential (primary) hypertension; E78.5 Hyperlipidemia, unspecified; M81.0 Age-related osteoporosis without current pathological fracture; Z66 Do not resuscitate; R62.7 Adult failure to thrive; Z60.2 Problems related to living alone; R53.81 Other malaise; I95.1 Orthostatic hypotension; E87.6 Hypokalemia; Z90.711 Acquired absence of uterus with remaining cervical stump; Z86.73 Personal history of transient ischemic attack (TIA), and cerebral infarction without residual deficits; Z87.891 Personal history of nicotine dependence; Z68.37 Body mass index [BMI] 37.0-37.9, adult; Z79.82 Long term (current) use of aspirin; Z79.899 Other long term (current) drug therapy
CPT/HCPCS: 10080; 10879